=== PATIENT | female | born 1960 | race Caucasian/White ===

== ENCOUNTER 2019-12-18 11:03 | Outpatient (CLI) | payer OTHER, SELFPAY ==
[2019-12-18 11:33] LABS: Hematocrit 38.8 % (37.0-47.0); Hemoglobin 12.6 g/dL (12.0-15.0); Mean Corpuscular HGB Conc 32.5 g/dl (32-36); Mean Corpuscular Volume 92.4 fl (80-100); Mean Platelet Volume 8.6 fl (7.4-10.4); Platelet Count Result 245 k/mm3 (150-375); Red Cell Distribution Width 13.1 % (11.5-14.5); White Blood Count 6.3 K/mm3 (4.5-10.0)
[2019-12-18 11:48] LABS: Alanine Aminotransferase 9 U/L (4-35); Albumin Level 4.3 g/dL (3.5-5.1); Alkaline Phosphatase 59 U/L (38-126); Aspartate Amino Transferase 29 U/L (14-36); Bilirubin,Total 0.6 mg/dL (0.2-1.3); Blood Urea Nitrogen 11 mg/dL (7-17); CRP < 0.5 mg/dL (<1.0); Calcium 8.9 mg/dL (8.4-10.2); Carbon Dioxide 30 mmol/L (22-30); Chloride 102 mmol/L (98-107); Estimated Glomerular Filt Rate > 60; Glucose 98 mg/dL (65-105); Potassium 3.8 mmol/L (3.4-5.0); Sodium 140 mmol/L (137-145)
[2019-12-26 20:02] LABS: Calprotectin, Stool 439.5 mcg/g
== END 2019-12-18 11:04 | disposition home or self-care (01) ==
PROVIDERS: PCP Family Medicine; Visit Provider Internal Medicine Gastroenterology
DX: R10.84 Generalized abdominal pain (principal); K52.9 Noninfective gastroenteritis and colitis, unspecified
CPT/HCPCS: 36415; 80053; 83993; 85027; 86140

== ENCOUNTER 2020-04-04 09:31 | Outpatient (CLI) | payer OTHER, SELFPAY ==
[2020-04-04 10:59] LABS: CRP < 0.5 mg/dL (<1.0)
== END 2020-04-04 09:32 | disposition home or self-care (01) ==
PROVIDERS: PCP Family Medicine; Visit Provider Internal Medicine Gastroenterology
DX: R19.7 Diarrhea, unspecified (principal); R10.84 Generalized abdominal pain
CPT/HCPCS: 36415; 86140

== ENCOUNTER 2020-04-05 09:52 | Outpatient (CLI) | payer OTHER, SELFPAY | END 2020-04-05 09:53 | disposition home or self-care (01) | LOC: ANHLAB 09:53 | PROVIDERS: PCP Family Medicine; Visit Provider Family Medicine | DX: R19.7 Diarrhea, unspecified (principal) | CPT/HCPCS: 83993 ==

== ENCOUNTER 2020-09-13 15:31 | Outpatient (CLI) | payer OTHER, SELFPAY ==
[2020-09-13 16:03] LABS: Basophils Percent Auto 0.6 % (0.2-1.2); Eosinophils Absolute Auto 0.2 K/mm3 (0-0.3); Eosinophils Percent Auto 4.4 % (0-4.4); Hematocrit 39.4 % (37.0-47.0); Hemoglobin 13.2 g/dL (12.0-15.0); Immature Granulocyte Absolute 0.01 K/mm3 (0.00-0.031); Immature Granulocyte Percent A 0.2 % (0-0.5); Lymphocytes Absolute Auto 1.99 K/mm3 (0.9-3.2); Lymphocytes Percent Auto 40.1 % (18.3-44.2); Mean Corpuscular HGB Conc 33.5 g/dl (32-36); Mean Corpuscular Volume 95.4 fl (80-100); Mean Platelet Volume 8.6 fl (7.4-10.4); Monocytes Absolute Auto 0.4 K/mm3 (0.1-0.6); Monocytes Percent Auto 8.7 % (2.6-8.5); Neutrophils Absolute Auto 2.3 K/mm3 (1.3-6.7); Platelet Count Result 205 k/mm3 (150-375); Red Blood Count 4.13 M/mm3 (4.2-5.4); Red Cell Distribution Width 12.7 % (11.5-14.5)
[2020-09-13 16:28] LABS: Alanine Aminotransferase 14 U/L (4-35); Albumin Level 4.5 g/dL (3.5-5.1); Alkaline Phosphatase 64 U/L (38-126); Anion Gap 5 mmol/L (8-16); Aspartate Amino Transferase 30 U/L (14-36); Blood Urea Nitrogen 19 mg/dL (7-17); Calcium 9.2 mg/dL (8.4-10.2); Carbon Dioxide 32 mmol/L (22-30); Chloride 102 mmol/L (98-107); Estimated Glomerular Filt Rate 50; Glucose 100 mg/dL (65-105); Potassium 3.9 mmol/L (3.4-5.0); Sodium 139 mmol/L (137-145)
[2020-09-13 16:53] LABS: Free T4 Free Thyroxine 0.83 ng/mL (0.78-2.19); Vitamin D 25 Hydroxy 19.9 ng/mL
[2020-09-13 16:58] LABS: Thyroid Stimulating Hormone 0.774 uIU/mL (0.465-4.680)
[2020-09-16 09:48] LABS: Vitamin B1 10 nmol/L (8-30)
== END 2020-09-13 15:32 | disposition home or self-care (01) ==
LOC: ANHLAB 15:33
PROVIDERS: PCP Family Medicine; Visit Provider Psychiatry & Neurology Neurology
DX: R41.3 Other amnesia (principal)
CPT/HCPCS: 36415; 80053; 82306; 82607; 84425; 84439; 84443; 85025

== ENCOUNTER 2020-09-27 08:47 | Outpatient (CLI) | payer OTHER, SELFPAY ==
--- NOTE | 2020-09-28 08:59 | P.NEURO_ITS ---
Neurology EEG Report General Information Date of Study: 09/27/20 TEST eeg DIAGNOSIS memory loss CONDITION OF RECORDING Awake drowsy and sleep EEG NUMBER [id number] CLINICAL HISTORY memory loss EEG DESCRIPTION basic resting occipital frequency consists of low-voltage 11 to 13 hertz per 2nd alpha admixed with low-voltage 15 to 21 hertz per 2nd beta activity. During drowsiness low-voltage beta activity seen diffusely. Bilateral symmetrical sle ep activity seen during sleep hyperventilation not done. Photic stimulation produced normal drive. Non paroxysmal. Nonfocal. Nonlateralizing. IMPRESSION Normal EEG during wakefulness drowsiness and sleep
== END 2020-09-27 08:48 | disposition home or self-care (01) ==
PROVIDERS: PCP Family Medicine; Visit Provider Psychiatry & Neurology Neurology
DX: R41.3 Other amnesia (principal)
CPT/HCPCS: 95816

== ENCOUNTER 2020-10-16 10:58 | Outpatient (CLI) | payer OTHER, SELFPAY ==
--- NOTE | ~2020-10-16 | US_ITS ---
US thyroid INDICATION: Thyroid goiter TECHNIQUE: Real-time sonographic images of the thyroid gland were obtained. COMPARISON: No prior images for comparison FINDINGS: The right thyroid lobe measures 4 x 1.9 x 1.4 cm. The left thyroid lobe measures 4.6 x 1.6 x 1.3 cm. There is normal echotexture and echogenicity throughout the thyroid gland. There is a smal l partially cystic hypoechoic 4 mm mass of the right lobe which is wider than tall, smooth marginated with no calcifications, TR 2. Normal vascular flow is present. IMPRESSION: 1. 4 mm cystic mass right thyroid lobe, likely benign. Reviewed, dictated and finalized at location A. PLANNER
== END 2020-10-16 10:59 | disposition home or self-care (01) ==
PROVIDERS: PCP Family Medicine; Visit Provider Internal Medicine Endocrinology, Diabetes & Metabolism
DX: E07.9 Disorder of thyroid, unspecified (principal)
CPT/HCPCS: 76536

== ENCOUNTER 2020-10-19 08:04 | Outpatient (CLI) | payer OTHER, SELFPAY ==
[2020-10-19 09:13] LABS: Alanine Aminotransferase 10 U/L (4-35); Albumin Level 4.6 g/dL (3.5-5.1); Alkaline Phosphatase 55 U/L (38-126); Anion Gap 7 mmol/L (8-16); Aspartate Amino Transferase 26 U/L (14-36); Bilirubin,Total 0.8 mg/dL (0.2-1.3); Blood Urea Nitrogen 16 mg/dL (7-17); Calcium 9.7 mg/dL (8.4-10.2); Carbon Dioxide 32 mmol/L (22-30); Chloride 102 mmol/L (98-107); Estimated Glomerular Filt Rate > 60; Glucose 95 mg/dL (65-105); Sodium 141 mmol/L (137-145)
[2020-10-19 09:42] LABS: Thyroid Stimulating Hormone 0.544 uIU/mL (0.465-4.680)
[2020-10-19 10:16] LABS: Folic Acid 7.8 ng/mL (2.76->20); Iron 76 ug/dL (37-170)
[2020-10-19 10:25] LABS: Percent Iron Saturation 23 % (20-50)
[2020-10-19 10:34] LABS: Free T4 Free Thyroxine 0.83 ng/mL (0.78-2.19)
[2020-10-22 05:29] LABS: Thyroid Peroxidase Antibodies <1 IU/mL (<9)
[2020-10-23 10:12] LABS: DHEA-Sulfate 36 mcg/dL (12-133)
[2020-10-23 11:40] LABS: T3 Reverse 9 ng/dL (8-25)
[2020-10-23 12:23] LABS: Testosterone Total 14 ng/dL (2-45)
[2020-10-25 11:35] LABS: Triiodothyronine T3 Free 2.7 pg/mL (2.3-4.2)
[2020-10-26 15:42] LABS: Thyroid Stimulating Immunoglob <89 % baseline (<140)
== END 2020-10-19 08:05 | disposition home or self-care (01) ==
PROVIDERS: PCP Family Medicine; Visit Provider Internal Medicine Endocrinology, Diabetes & Metabolism
DX: R94.6 Abnormal results of thyroid function studies (principal); L65.9 Nonscarring hair loss, unspecified
CPT/HCPCS: 36415; 80053; 82607; 82627; 82728; 82746; 83540; 83550; 84402; 84403; 84439; 84443; 84445; 84481; 84482; 86376

== ENCOUNTER 2020-12-08 12:11 | Outpatient (CLI) | payer OTHER, SELFPAY ==
--- NOTE | ~2020-12-08 | XR_ITS ---
[id number]_CR DATE: 12/08/2020 12:41 INDICATION: Rib pain under right chest after shoveling snow TECHNIQUE: PA chest. 3 views of the right ribs.. COMPARISON: None FINDINGS: Normal heart size. There is aortic unfolding. No hilar or mediastinal enlargement. Lungs ar e hyperinflated but clear of infiltrate or consolidation. No pleural effusion or pulmonary vascular c ongestion or pneumothorax. Diffuse osteopenia. No displaced right rib fracture or any rib bone destruction is noted. IMPRESSION: No displaced rib fracture detected Diffuse osteopenia Bilateral hyperinflation. No active pulmonary disease Reviewed, dictated and finalized at Location A. Reviewed, dictated and finalized at location A. N MASTER
== END 2020-12-08 12:12 | disposition home or self-care (01) ==
LOC: ANHIMG 12:26
PROVIDERS: PCP Family Medicine; Visit Provider Family Medicine
DX: R07.81 Pleurodynia (principal); M85.88 Other specified disorders of bone density and structure, other site; R91.8 Other nonspecific abnormal finding of lung field
CPT/HCPCS: 71101

== ENCOUNTER 2021-01-02 08:01 | Outpatient (CLI) | payer OTHER, SELFPAY ==
--- NOTE | ~2021-01-02 | XR_ITS ---
XR hip BI 2V w AP pelvis 01/02/2021 08:22 Indication: Status post recent fall. Hip pain. Procedure: AP pelvis and 2 views each hip Comparison: No prior studies for comparison. Findings: Pelvic rings are intact. Mild osteoarthritis of the hips. Sacral foramen are symmetric. No focal soft tissue abnormality. No foreign bodies. There are surgical clips in the right lower pelvis. There are pelvic phleboliths. Mild lower lumbar spondylosis. No acute fracture or traumatic malalign ment. Impression: 1: No acute fracture. 2: Mild osteoarthritis of the hips. Reviewed, dictated and finalized at location A. Impression: 1: No acute fracture. 2: Mild osteoarthritis of the hips.
== END 2021-01-02 08:02 | disposition home or self-care (01) ==
PROVIDERS: PCP Family Medicine; Visit Provider Nurse Practitioner Family
DX: M16.0 Bilateral primary osteoarthritis of hip (principal)
CPT/HCPCS: 73521

== ENCOUNTER 2021-01-06 07:54 | Outpatient (CLI) | payer OTHER, SELFPAY ==
--- NOTE | ~2021-01-06 | DEXA_ITS ---
Bone Density Report Name: Karuna Carroll Age: 60 Sex: Female Ethnicity: White Date of : 1960 Indication: osteopenia; height loss; inflammatory bowel disease; hysterectomy; postmenopausal Referring Provider: RAMÓN, BHUMIKA Krueger Study: Bone densitometry was performed. Exam Date: January 06, 2021 Accession number: [id number] Bone Density: Region BMD T-score Z-score Classification AP Spine (L1-L4) 0.796 -2.3 -0.7 Osteopenia Femoral Neck (Left) 0.599 -2.3 -0.9 Osteopenia Total Hip (Left) 0.770 -1.4 -0.3 Osteopenia Total Hip Bilateral Avg 0.777 -1.4 -0.3 Osteopenia Femoral Neck (Right) 0.658 -1.7 -0.3 Osteopenia Total Hip (Right) 0.783 -1.3 -0.2 Osteopenia World Health Organization criteria for BMD impression classify patients as: Normal (T-score at or above -1.0), Osteopenia (T-score between -1.0 and -2.5), or Osteoporosis (T-score at or below -2.5). 10-year Fracture Risk(1): Major Osteoporotic Fracture 10% Hip Fracture 1.7% Reported Risk Factors: [place] (), Neck BMD=0.599, BMI=22.3 (1) FRAX(R) Version 3.08. Fracture probability calculated for an untreated patient. Fracture probability may be lower if the patient has received treatment. Previous Exams: Region Exam Age BMD T-score BMD Change BMD Change Date g/cm2 vs Baseline vs Previous AP Spine(L1-L4) 01/06/2021 60 0.796 -2.3 -0.009(-1.1%) -0.009(-1.1%) 09/20/2017 57 0.805 -2.2 Total Hip(Left) 01/06/2021 60 0.770 -1.4 -0.045(-5.5%)* -0.045(-5.5%)* 09/20/2017 57 0.814 -1.0 Total Hip(Right) 01/06/2021 60 0.783 -1.3 -0.036(-4.4%)* -0.036(-4.4%)* 09/20/2017 57 0.819 -1.0 *Denotes significance at 95% confidence level, LSC for AP Spine = 0.022 g/cm2, LSC for Total Hip = 0.027 g/cm2 Clinical Information Provided by Patient: Has used the following medications: Vitamin D, Calcium Has the following medical conditions: nflammatory bowel diseases, Hysterectomy, COLITIS, Patient maximum height was 63 Menopause Age: 50 Drinks caffeinated beverages Onset of menses at age 12 Number of children 2 Impression: The patient has low bone mass, based on the Total Spine T-score. The patient has an estimated ten-year risk of hip fracture of 1.7% and an estimated ten-year risk of major fracture of 10%, based on the WHO FRAX algorithm. The BMD for the Total Hip(Left) decreased, changing by -5.5% since the last DXA exam. The BMD for the Total Hip(Right) decreased, changing by -4.
== END 2021-01-06 07:55 | disposition home or self-care (01) ==
LOC: ANHIMG 07:56
PROVIDERS: PCP Family Medicine; Visit Provider Family Medicine
DX: M85.80 Other specified disorders of bone density and structure, unspecified site (principal)
CPT/HCPCS: 77080

== ENCOUNTER 2021-03-22 12:46 | Outpatient (CLI) | payer OTHER, SELFPAY ==
--- NOTE | ~2021-03-22 | XR_ITS ---
EXAMINATION: XR chest 2V 03/22/2021 12:58 INDICATION: Productive cough PROCEDURE: 2 view chest COMPARISON: 03/08/2027 FINDINGS: The lungs are clear. The lungs are hyperinflated which is consistent with, but not diagnost ic of chronic obstructive pulmonary disease. The cardiomediastinal silhouette is within normal limits . There are no pleural effusions. There is no pneumothorax suspected. IMPRESSION: 1: NO ACUTE CARDIOPULMONARY DISEASE. Reviewed, dictated and finalized at location B.
== END 2021-03-22 12:47 | disposition home or self-care (01) ==
LOC: ANHIMG 12:48
PROVIDERS: PCP Family Medicine; Visit Provider Nurse Practitioner Family
DX: R05 Cough (principal)
CPT/HCPCS: 71046

== ENCOUNTER 2021-05-02 10:07 | Outpatient (CLI) | payer OTHER, SELFPAY ==
[2021-05-02 10:49] LABS: Alanine Aminotransferase 20 U/L (4-35); Albumin Level 4.7 g/dL (3.5-5.1); Alkaline Phosphatase 69 U/L (38-126); Anion Gap 9 mmol/L (8-16); Aspartate Amino Transferase 31 U/L (14-36); Bilirubin,Total 0.8 mg/dL (0.2-1.3); Blood Urea Nitrogen 16 mg/dL (7-17); Calcium 9.8 mg/dL (8.4-10.2); Carbon Dioxide 30 mmol/L (22-30); Chloride 99 mmol/L (98-107); Estimated Glomerular Filt Rate > 60; Glucose 102 mg/dL (65-110); Potassium 3.8 mmol/L (3.4-5.0); Sodium 138 mmol/L (137-145)
[2021-05-02 11:00] LABS: Free T4 Free Thyroxine 0.77 ng/mL (0.78-2.19)
[2021-05-02 11:19] LABS: Thyroid Stimulating Hormone 0.464 uIU/mL (0.465-4.680)
[2021-05-03 16:51] LABS: Folic Acid > 20.0 ng/mL (2.76->20); Vitamin B12 > 1000.0 pg/mL (239-931)
[2021-05-06 05:01] LABS: Thyroid Peroxidase Antibodies <1 IU/mL (<9)
[2021-05-06 06:47] LABS: Triiodothyronine T3 Free 2.5 pg/mL (2.3-4.2)
== END 2021-05-02 10:08 | disposition home or self-care (01) ==
PROVIDERS: PCP Family Medicine; Visit Provider Internal Medicine Endocrinology, Diabetes & Metabolism
DX: E06.3 Autoimmune thyroiditis (principal); E53.8 Deficiency of other specified B group vitamins
CPT/HCPCS: 36415; 80053; 82607; 82746; 84439; 84443; 84481; 86376

== ENCOUNTER 2021-05-08 07:53 | Outpatient (CLI) | payer OTHER, SELFPAY ==
--- NOTE | ~2021-05-08 | MR_ITS ---
EXAMINATION: MR abdomen wo/w con DATE: 05/08/2021 09:01 INDICATION: Pancreatic cyst TECHNIQUE: Magnetic resonance imaging (MRI) of the abdomen was performed without and with 11 mL Multi yissel intravenous contrast. Sequences included coronal T2-weighted SS-FSE, coronal and axial FS 2D-F IESTA, axial STIR FSE, axial T2-weighted SS-FSE, axial T2-weighted FS SS-FSE, axial diffusion-weighte d SE, axial dual-echo T1-weighted FSPGR, and axial and coronal T1-weighted LAVA. Postcontrast axial T 1-weighted LAVA images were obtained in a time course. Postcontrast coronal T1-weighted LAVA images w ere obtained. COMPARISON: CT abdomen dated 03/31/2007 FINDINGS: Heart size is normal. No pericardial or pleural effusion. There are couple T2 hyperintense nonenhanci ng hepatic cysts, the largest in the left hepatic lobe measuring 2.1 cm in maximal diameter. There is a gradient of dependently layering sludge in the normal-appearing gallbladder. Unchanged mild dilati on of the common bile duct which measures up to 8 mm but smoothly tapers more distally with no eviden t obstructing stone or mass. No intrahepatic biliary ductal dilation. There are couple T2 hyperintens e nonenhancing right renal cysts, the larger measuring 1.3 cm in maximal diameter. Spleen is normal. Pancreas appears normal with homogeneous parenchymal enhancement and normal caliber main pancreatic d uct. No cystic or abnormally enhancing pancreatic lesions identified. Visualized bowels are unremarka ble. No pathologically enlarged abdominal lymphadenopathy. Normal bone marrow signal throughout. Nati ular fissure and left paracentral disc protrusion resulting in mild central canal stenosis at T11-T12 . IMPRESSION: 1. Normal pancreas. No abnormal pancreatic lesions identified in either the current study or prior CT . Recommend correlation with any intervening prior outside imaging. Reviewed, dictated and finalized at location A. IMPRESSION: 1. Normal pancreas. No abnormal pancreatic lesions identified in either the cur rent study or prior CT. Recommend correlation with any intervening prior outsid e imaging.
== END 2021-05-08 07:54 | disposition home or self-care (01) ==
LOC: ANHIMG 08:01
PROVIDERS: PCP Family Medicine
DX: K86.2 Cyst of pancreas (principal)
CPT/HCPCS: 74183; A9577

== ENCOUNTER 2022-01-24 17:23 | Outpatient (CLI) | payer OTHER, SELFPAY ==
--- NOTE | ~2022-01-24 | XR_ITS ---
EXAM: XR abdomen/kub 1V HISTORY: LOWER BACK PAIN, CONCERNED FOR KIDNEY STONES COMPARISON: 03/31/2007 FINDINGS: Clear lung bases. Normal bowel gas pattern. No organomegaly. 3 mm calcific density over th e left upper pole. Punctate hyperdensities over the left lower pole. Irregular calcific density proje cts over the right UPJ. Multiple pelvic phleboliths/calcifications. Pelvic surgical clips. Degenerati ve changes in the lower lumbar spine. IMPRESSION: Multiple abdominal and pelvic calcific densities that could represent nephrolithiasis or stones withi n the distal collecting system in the appropriate conical context. CT would be helpful for further ev aluation/more definitive determination. Reviewed, dictated and finalized at location K. IMPRESSION: Multiple abdominal and pelvic calcific densities that could represent nephrolit hiasis or stones within the distal collecting system in the appropriate conical context. CT would be helpful for further evaluation/more definitive determinat ion.
== END 2022-01-24 17:24 | disposition home or self-care (01) ==
PROVIDERS: PCP Family Medicine; Visit Provider Nurse Practitioner Family
DX: R10.9 Unspecified abdominal pain (principal); M47.816 Spondylosis without myelopathy or radiculopathy, lumbar region
CPT/HCPCS: 74018

== ENCOUNTER 2022-03-13 09:09 | Outpatient (CLI) | payer OTHER, SELFPAY ==
--- NOTE | ~2022-03-13 | XR_ITS ---
XR wrist LT min 3V 03/13/2022 11:41 Indication: Left wrist pain Procedure: 4 views left wrist Comparison: 04/14/2006 Findings: No fracture, subluxation or dislocation. No significant soft tissue abnormality. No foreign body. Impression: 1: No acute fracture. Reviewed, dictated and finalized at location A. Impression: 1: No acute fracture.
== END 2022-03-13 09:10 | disposition home or self-care (01) ==
PROVIDERS: PCP Family Medicine; Referring Provider Nurse Practitioner Family; Visit Provider Internal Medicine Endocrinology, Diabetes & Metabolism
DX: Z78.0 Asymptomatic menopausal state (principal); M25.532 Pain in left wrist
CPT/HCPCS: 73110

== ENCOUNTER 2022-03-27 11:10 | Outpatient (CLI) | payer OTHER, SELFPAY ==
--- NOTE | ~2022-03-27 | DEXA_ITS ---
Bone Density Report Name: KENYETTA WOODSON Age: 61 Sex: Female Ethnicity: White Date of : 1960 Indication: osteopenia; prior fracture; hysterectomy; postmenopausal Referring Provider: PADDY, HARRIS Davidson Study: Bone densitometry was performed. Exam Date: March 27, 2022 Accession number: [id number] Bone Density: Region BMD T-score Z-score Classification AP Spine(L1-L4) 0.821 -2.1 -0.4 Osteopenia Femoral Neck (Left) 0.597 -2.3 -0.8 Osteopenia Total Hip (Left) 0.765 -1.5 -0.3 Osteopenia Femoral Neck (Right) 0.651 -1.8 -0.3 Osteopenia Total Hip (Right) 0.777 -1.3 -0.2 Osteopenia Total Hip Mean 0.771 -1.4 -0.3 Osteopenia World Health Organization criteria for BMD impression classify patients as: Normal (T-score at or above -1.0), Osteopenia (T-score between -1.0 and -2.5), or Osteoporosis (T-score at or below -2.5). 10-year Fracture Risk(1): Major Osteoporotic Fracture 19% Hip Fracture 3.2% Reported Risk Factors: [place] (), Neck BMD=0.597, BMI=24.3, previous fracture (1) FRAX(R) Version 3.08. Fracture probability calculated for an untreated patient. Fracture probability may be lower if the patient has received treatment. Previous Exams: Region Exam Age BMD T-score BMD Change BMD Change Date g/cm2 vs Baseline vs Previous AP Spine (L1-L4) 03/27/2022 61 0.821 -2.1 0.016 (2.0%) 0.025 (3.1%)* 01/06/2021 60 0.796 -2.3 -0.009 (-1.1%) -0.009 (-1.1%) 09/20/2017 57 0.805 -2.2 Total Hip(Left) 03/27/2022 61 0.765 -1.5 -0.050 (-6.1%) -0.005 (-0.6%) 01/06/2021 60 0.770 -1.4 -0.045 (-5.5%) -0.045 (-5.5%) 09/20/2017 57 0.814 -1.0 Total Hip(Right) 03/27/2022 61 0.777 -1.3 -0.042 (-5.1%) -0.006 (-0.7%) 01/06/2021 60 0.783 -1.3 -0.036 (-4.4%) -0.036 (-4.4%) 09/20/2017 57 0.819 -1.0 *Denotes significance at 95% confidence level, LSC for AP Spine = 0.022 g/cm2, LSC for Total Hip = 0.027 g/cm2 Clinical Information Provided by Patient: Has had a low trauma fracture Has the following medical conditions: Hysterectomy Patient maximum height was 63 Menopause Age: 50 Drinks caffeinated beverages Onset of menses at age 10 Number of children 2 Impression: The patient has low bone mass, based on the Left Femoral Neck T-score. The patient has an estimated ten-year risk of hip fracture of 3.2% and an estimated ten-year risk of major fracture of 19%, based on the WHO FRAX algorithm. The pat
[2022-03-27 13:04] LABS: Alanine Aminotransferase 15 U/L (6-35); Albumin Level 4.9 g/dL (3.5-5.1); Alkaline Phosphatase 75 U/L (38-126); Anion Gap 5 mmol/L (8-16); Aspartate Amino Transferase 24 U/L (14-36); Bilirubin,Total 0.5 mg/dL (0.2-1.3); Blood Urea Nitrogen 9 mg/dL (7-17); Calcium 9.1 mg/dL (8.4-10.2); Carbon Dioxide 28 mmol/L (22-30); Chloride 105 mmol/L (98-107); Estimated Glomerular Filt Rate > 60; Glucose 98 mg/dL (65-110); Potassium 4.2 mmol/L (3.4-5.0); Sodium 138 mmol/L (137-145)
[2022-03-27 13:19] LABS: Free T4 Free Thyroxine 0.87 ng/mL (0.78-2.19)
[2022-03-27 13:32] LABS: Thyroid Stimulating Hormone 0.328 uIU/mL (0.465-4.680)
[2022-03-27 14:07] LABS: Folic Acid 14.5 ng/mL (2.76->20)
[2022-03-30 05:33] LABS: Triiodothyronine T3 Free 2.6 pg/mL (2.3-4.2)
[2022-03-30 07:00] LABS: Thyroid Peroxidase Antibodies <1 IU/mL (<9)
== END 2022-03-27 11:11 | disposition home or self-care (01) ==
PROVIDERS: PCP Family Medicine; Visit Provider Internal Medicine Endocrinology, Diabetes & Metabolism
DX: Z78.0 Asymptomatic menopausal state (principal); E06.3 Autoimmune thyroiditis; M85.89 Other specified disorders of bone density and structure, multiple sites
CPT/HCPCS: 36415; 77080; 80053; 82607; 82746; 84439; 84443; 84481; 86376

== ENCOUNTER 2022-08-22 00:59 | Day surgery (SDC) | payer OTHER, SELFPAY ==
[2022-08-15 14:46] VITALS: BMI 24.2
--- NOTE | 2022-08-21 17:00 | PM.HPGS ---
History of Present Illness History of Present Illness Consent: Risks, benefits, and alternatives have been discussed and questions answered. Patient agrees to proceed with procedure. Chief complaint: neoplasm screening Narrative: Karuna Carroll is a 61 year old female who was referred for change in bowel habits. She has had severe diarrhea. About 5 years ago she had been found to have microscopic colitis on biopsy when she also was being investigated for diarrhea. She had taking budesonide for while with good results. Review of Systems Review of Systems: All systems reviewed & are unremarkable except as noted in HPI and below PMFSH Past Medical History Medical History Trigger finger of all digits of left hand Family History Family History Mother Hypertension Family history of coronary artery disease Sibling Hypertension Family history of malignant neoplasm Family history of malignant neoplasm of cervix Family history of coronary artery disease Family history of malignant neoplasm of breast in first degree relative Father Malignant neoplasm of prostate Social History Social History Smoking status: Never smoker Alcohol intake: current Alcohol use details: occasionally Substance use: never Substance use type: does not use Living arrangements: with family Spiritual care concerns: No Meds Home Medications and Allergies Home Medications Medication Instructions Recorded Confirmed Type hydrochlorothiazide 12.5 mg capsule 12.5 mg PO DAILY 03/20/21 08/15/22 History levothyroxine 25 mcg tablet 25 mcg PO DAILY 03/20/21 08/15/22 History (Euthyrox) loperamide 2 mg tablet (Imodium 2 mg PO Q6H PRN Diarrhea 03/20/21 08/15/22 History A-D) losartan 100 mg tablet 100 mg PO DAILY 03/20/21 08/15/22 History multivitamin (Daily Multi-Vitamin 1 tablet PO DAILY 03/20/21 08/15/22 History tablet) omeprazole 20 mg capsule,delayed 20 mg PO DAILY 03/20/21 08/15/22 History release donepezil 5 mg tablet See Rx Instructions .Route 08/01/22 08/15/22 Rx .COMPLEX #30 tabs Allergies Allergy/AdvReac Type Severity Reaction Status Date / Time azithromycin Allergy Unknown unknown Verified 08/22/22 11:55 codeine Allergy Unknown Unknown Verified 08/22/22 11:55 Penicillins Allergy Unknown Unknown Verified 08/22/22 11:55 Sulfa (Sulfonamide Allergy Unknown Unknown Verified 08/22/22 11:55 Antibiotics) tramadol Allergy Unknown Tinnitus Verified 08/22/22 11:55 Exam Const: General: alert Orientation/consciousness: patient oriented x3 Resp: Auscultation: clear to auscultation bilaterally Cardio: Rhythm: regular rhythm GI: GI Palp: Yes Soft to palpation and No Tenderness to palpation present (GI) Neuro: General: patient oriented x3 Assessment and Plan Assessment and plan (1) Chronic diarrhea: Code(s): K52.9 - Noninfective gastroenteritis and colitis, unspecified Status: Acute Assessment and Plan: Colonoscopy with possible biopsy or polypectomy or cautery or injection of substances.
[2022-08-22 11:56] VITALS: BP 171/106; PULSE 96; RESP 18; TEMP 36.7; O2SAT 99
[2022-08-22] MEDS: LACTATED RINGERS 1,000 ML 150 ML IV CONT (12:03)
--- NOTE | 2022-08-22 12:43 | WPDANESEPPF ---
Anes - Initial Pre Proc Eval Procedure: Operation Date: 08/22/22 13:30 Proposed Procedures p Screening Colonoscopy - Manohar Delgadillo MD Date/Time: 08/22/22 12:43 Surgeon: Manohar Delgadillo MD Pre Op Diagnosis: neoplasm screening Patient Data Age: 61 Gender: F Height: 1.57 m Weight: 60.4 kg Last Vital Signs Temp 98.1 F 08/22/22 11:56 Pulse 96 08/22/22 11:56 Resp 18 08/22/22 11:56 BP 171/106 H 08/22/22 11:56 Pulse Ox 99 08/22/22 11:56 O2 Del Method Room Air 08/22/22 11:56 Allergies Allergy/AdvReac Type Severity Reaction Status Date / Time azithromycin Allergy Unknown unknown Verified 08/22/22 11:55 codeine Allergy Unknown Unknown Verified 08/22/22 11:55 Penicillins Allergy Unknown Unknown Verified 08/22/22 11:55 Sulfa (Sulfonamide Allergy Unknown Unknown Verified 08/22/22 11:55 Antibiotics) tramadol Allergy Unknown Tinnitus Verified 08/22/22 11:55 Home Medications Medication Instructions Recorded Confirmed Type hydrochlorothiazide 12.5 mg capsule 12.5 mg PO DAILY 03/20/21 08/15/22 History levothyroxine 25 mcg tablet 25 mcg PO DAILY 03/20/21 08/15/22 History (Euthyrox) loperamide 2 mg tablet (Imodium 2 mg PO Q6H PRN Diarrhea 03/20/21 08/15/22 History A-D) losartan 100 mg tablet 100 mg PO DAILY 03/20/21 08/15/22 History multivitamin (Daily Multi-Vitamin 1 tablet PO DAILY 03/20/21 08/15/22 History tablet) omeprazole 20 mg capsule,delayed 20 mg PO DAILY 03/20/21 08/15/22 History release donepezil 5 mg tablet See Rx Instructions .Route 08/01/22 08/15/22 Rx .COMPLEX #30 tabs Patient hx anesthesia problems: none Family hx anesthesia problems: none Results Review: All pre-operative results and documents have been reviewed as part of the pre-operative evaluation. [facility] Past Medical History Medical History Trigger finger of all digits of left hand Family History Family History Mother Hypertension Family history of coronary artery disease Sibling Hypertension Family history of malignant neoplasm Family history of malignant neoplasm of cervix Family history of coronary artery disease Family history of malignant neoplasm of breast in first degree relative Father Malignant neoplasm of prostate Social History Social History Smoking status: Never smoker Alcohol intake: current Alcohol use details: occasionally Substance use: never Substance use type: does not use Living arrangements: with family Spiritual care concerns: No Anes - Eval Final PreProcedure Day of Procedure 08/22/22 12:43 Patient weight: normal Heart: regular rate and rhythm Lungs: clear to auscultation Airway: Mallampati scale class II Neurological: alert and oriented Last oral intake: >/= 8 hours ASA classification: III Emergent: no Anesthetic plan: proceed Anesthesia type and monitoring: general GIVS and standard monitoring Results Review: All pre-operative results and documents have been reviewed as part of the pre-operative evaluation. Informed Consent: The patient's anesthetic plan and its attendant risks and benefits were discussed with the patient/family/POA. Questions were solicited and answers provided to the satisfaction of the patient/family/POA.
[2022-08-22 13:17] VITALS: BP 126/68; PULSE 79; RESP 20; O2SAT 99
[2022-08-22 13:27] VITALS: BP 126/83; PULSE 69; RESP 20; O2SAT 99
[2022-08-22 13:37] VITALS: BP 147/97; PULSE 67; RESP 17; O2SAT 99
== END 2022-08-22 13:45 | disposition home or self-care (01) ==
PROVIDERS: PCP Family Medicine; Visit Provider Internal Medicine Gastroenterology
PROC: 0DJD8ZZ Inspection of Lower Intestinal Tract, Via Natural or Artificial Opening Endoscopic (ICD-10-PCS; CPT 45378; principal; 2022-08-22 13:30)
DX: R19.7 Diarrhea, unspecified (principal)
CPT/HCPCS: 45380; 88305; J2001; J2704; J7120

== ENCOUNTER 2022-11-27 06:55 | Outpatient (CLI) | payer OTHER, SELFPAY ==
--- NOTE | ~2022-11-27 | MR_ITS ---
EXAMINATION: MR brain/brain stem wo con DATE: 11/27/2022 07:30 INDICATION: Memory loss. TECHNIQUE: Magnetic resonance imaging (MRI) of the brain and brainstem was performed without intraven ous contrast. COMPARISON: Brain MRI 07/15/2018 FINDINGS: There are scattered areas of nonspecific increased T2-weighted signal intensity in the cere bral white matter. There is no intracranial hemorrhage, acute infarction, or abnormal intracranial ma ss lesion. The ventricles are normal in size. There is mild mucosal thickening in the paranasal sinus es. The mastoid air cells are normal. The orbits are normal. IMPRESSION: 1. Moderate nonspecific cerebral white matter disease, which likely represents chronic small vessel i schemic disease, worsened from 07/15/2018. Reviewed, dictated and finalized at location A. BEVERAGE SUPERVISOR IMPRESSION: 1. Moderate nonspecific cerebral white matter disease, which likely represents chronic small vessel ischemic disease, worsened from 07/15/2018.
== END 2022-11-27 06:56 | disposition home or self-care (01) ==
LOC: ANHIMG 06:56
PROVIDERS: PCP Family Medicine; Visit Provider Psychiatry & Neurology Neurology
DX: R41.3 Other amnesia (principal); R93.0 Abnormal findings on diagnostic imaging of skull and head, not elsewhere classified
CPT/HCPCS: 70551

== ENCOUNTER 2023-08-28 08:58 | Outpatient (CLI) | payer MEDICARE, MEDICAID, SELFPAY ==
--- NOTE | 2023-09-24 19:26 | WPDHOMESLEEP ---
Sleep Study - Home Unattended Date of Study: 08/28/23 Ordering Provider: Cecelia Tripathi MD Interpreting Provider: Kathie Flores MD Home Sleep Study Type: Watch PAT Height: 1.57 m Weight: 61.235 kg Body Mass Index: 24.7 Neck Circumference (inches): 13 [place]: 7 Reason for Sleep Study Snoring, excessive daytime sleepiness Sleep History Karuna Carroll is a 63-year-old woman with excessive daytime sleepiness. She never awakens from sleep short of breath. She never wakes at night with heartburn, belching or coughing.??She never snores, never snores loudly enough that others complain. She rarely has trouble sleeping when she has a cold. She never wakes up gasping for breath during the night. She never has breathing problems at night. She rarely sweats excessively at night. She never notices her heart pounding or beating irregularly during the night. She rarely falls asleep during the day. She never falls asleep involuntarily, never falls asleep while driving. She never experiences loss of muscle tone with strong emotion. She never feels paralyzed on waking or falling asleep. She rarely experiences vivid dreams upon waking or falling asleep. She never feels afraid of going to sleep. She never has nightmares. She occasionally recalls her dreams. She occasionally has thoughts racing through her mind. She rarely feels sad or depressed. She rarely feels anxiety. She rarely notices parts of her body jerk. She never kicks during the night. She never feels crawling or aching feelings in her legs. She rarely feels leg pain at night. She never has morning jaw pain, and never grinds her teeth at night. She rarely feels bothered by pain during the day, is rarely awakened by pain during the night. She rarely wakes up feeling stiff in the morning, rarely wakes feeling sore or achy in the morning. She occasionally awakens with pain in her neck, spine, or joints. She has fatigue, palpitations and poor appetite. Normal bedtime is about 10:00 p.m., taking a variable amount of time to fall asleep. She wakes up maybe once at night for trip to the bathroom, returns to sleep pretty easily. She may rollover and kick off the blankets during the night. She estimates getting between 6 and 7 hours of sleep at night. Her wake up time is variable. She takes naps in the afternoon or evening. A short nap lasting 10-15 minutes may be refreshing. Habits:??Tobacco: Never smoked Caffeine: 1 serving per day. Alcohol: 2 servings per day around 5:00 p.m. Recreational substances: none [facility] Past Medical History Medical History (Updated 09/24/23 @ 19:45 by Kathie Flores MD) High blood pressure Hypothyroidism Trigger finger of all digits of left hand Surgical History Surgical History H/O hysterectomy with unilateral oophorectomy Family History Family History Mother Hypertension Family history of coronary artery disease Sibling Hypertension Family history of malignant neoplasm Family history of malignant neoplasm of cervix Family history of coronary artery disease Family history of malignant neoplasm of breast in first degree relative Father Malignant neoplasm of prostate Social History Social History (Updated 06/10/23 @ 10:27 by Janet Turner MA) Smoking status: Never smoker Alcohol intake: current Alcohol use details: occasionally Substance use: never Substance use type: does not use Lack of Transportation: No Lack of Food: Never True Current Housing: I Have Housing Concerned About Future Housing: No Difficulty Paying Gas/Electric Bills: No Difficulty Paying for Meds: No Currently Unemployed: No Education: High School Diploma/GED Difficulty w/ Childcare or Family Care: No Living arrangements: with family Occupation/Education: retired Gender identity (if verbalized by the patient): Fe
[2023-09-24 19:27] VITALS: BMI 24.7
== END 2023-09-20 10:13 | disposition home or self-care (01) ==
LOC: ANHCSM 08:59
PROVIDERS: PCP Family Medicine; Visit Provider Family Medicine
DX: G47.30 Sleep apnea, unspecified (principal); G47.19 Other hypersomnia
CPT/HCPCS: 95800

== ENCOUNTER 2023-12-06 11:11 | Emergency (ER) | payer MEDICARE, SELFPAY ==
[2023-12-06] VITALS (13 sets, daily range): BP systolic 138–162; BP diastolic 89–100; PULSE 79–96; RESP 14–27; TEMP 36.5; O2SAT 94–100
--- NOTE | ~2023-12-06 | XR_ITS ---
EXAMINATION: XR chest 2V DATE: 12/06/2023 17:33 INDICATION: Low rib pain. Lightheadedness. TECHNIQUE: Frontal and lateral views of the chest were obtained. COMPARISON: Chest 2 views 03/22/2021 FINDINGS: There is mild atelectasis in the lower lung zones. No pleural effusion or pneumothorax. The heart size is normal. IMPRESSION: 1. Mild atelectasis in the lower lung zones. Reviewed, dictated and finalized at location E. BEADER
--- NOTE | ~2023-12-06 | CT_ITS ---
EXAMINATION: CTA brain carotid DATE: 12/06/2023 18:50 INDICATION: Vertigo. Head injury. TECHNIQUE: Computed tomographic angiography (CTA) of the head was performed without and with 100 mL O mnipaque-350 intravenous contrast. CTA of the neck was performed with intravenous contrast. Automated exposure control and iterative reconstruction technique were employed. The dose-length product was 1 572.89 mGy-cm. Maximum intensity projection and volume rendered 3D-reconstructions were created by franko technologist on a separate workstation. COMPARISON: Brain MRI 11/27/2022 FINDINGS: HEAD CTA: There are scattered areas of low attenuation in the cerebral white matter. There is no intr acranial hemorrhage, acute infarction, or abnormal intracranial mass lesion. The ventricles are curly l in size. Right vertebral artery is dominant. There is no significant stenosis of basilar artery or the posterior cerebral arteries. There is no significant stenosis of the intracranial internal caroti d arteries or anterior or middle cerebral arteries. Anterior communicating artery is normal. The post erior to indicating arteries are normal. There is no aneurysm. NECK CTA: There are no pathologically enlarged lymph nodes. There is no significant stenosis of the v ertebral arteries. There is minimal plaque in the proximal internal carotid arteries. There is 0% dante nosis of the proximal right internal carotid artery relative to normal distal artery lumen diameter ( NASCET criteria). There is 0% stenosis of the proximal left internal carotid artery relative to curly l distal artery lumen diameter. There is severe cervical spondylosis. IMPRESSION: 1. Moderate nonspecific cerebral white matter disease, which likely represents chronic small vessel i schemic disease. 2. No aneurysm or significant intracranial arterial stenosis. 3. 0% stenosis of the proximal right internal carotid arteries relative to normal distal artery lumen diameters (NASCET criteria). Reviewed, dictated and finalized at location E. CALIBRATOR IMPRESSION: 1. Moderate nonspecific cerebral white matter disease, which likely represents chronic small vessel ischemic disease. 2. No aneurysm or significant intracranial arterial stenosis. 3. 0% stenosis of the proximal right internal carotid arteries relative to norm al distal artery lumen diameters (NASCET criteria).
--- NOTE | 2023-12-06 17:08 | ECG_ITS ---
Measurements Intervals [place] Rate: 76 P: 45 NC: 177 QRS: -10 QRSD: 89 T: 17 QT: 396 QTc: 448 Interpretive Statements SINUS RHYTHM NONSPECIFIC T-WAVE ABNORMALITY BORDERLINE ECG COMPARED TO ECG 03/24/2019 09:00:28 SINUS RHYTHM NOW PRESENT Electronically Signed On 12-07-2023 14:36:52 SEARCH ENGINE OPTIMIZATION CONSULTANT by Leif Cid M.D.
--- NOTE | 2023-12-06 17:14 | ED.DIZZY ---
HPI - Dizziness General Chief Complaint: Dizziness Stated Complaint: DIZZINESS, ABD PAIN X2WKS Time Seen by Provider: 12/06/23 16:36 History of Present Illness HPI Narrative: Patient is a 63-year-old female with a history of hypertension, dementia, hypothyroidism, colitis presenting with dizziness. Patient states that for the last 4-5 months she has had intermittent dizziness that she describes as a mixture of lightheadedness and room spinning. States that she really notices that whenever she stands up from sitting. States that if she sits back down it does improve. States that she had a fall about 2 weeks ago because of the dizziness and she struck the right side of her face. States that she sustained a black eye which has been healing. She also complains of right-sided lower rib pain after the fall. She saw her PCP several weeks ago who obtained outpatient blood work and x-rays but she has not received any results. The patient and her son called her PCP today who advised that she come into the ER for evaluation. She denies chest pain, shortness of breath, leg swelling. States that she sometimes does have intermittent palpitations that do not correspond with her dizziness. She denies numbness or weakness, speech changes, or vision changes though she states that she recently got new bifocal glasses. No fevers, cough, nausea or vomiting, dysuria. States that her urine has been darker than normal as well as stronger smelling. Related Data Home Medications Medication Instructions Recorded Confirmed hydrochlorothiazide 12.5 mg capsule 12.5 mg PO DAILY 03/20/21 06/10/23 levothyroxine 25 mcg tablet 25 mcg PO DAILY 03/20/21 06/10/23 (Euthyrox) loperamide 2 mg tablet (Imodium 2 mg PO Q6H PRN Diarrhea 03/20/21 06/10/23 A-D) losartan 100 mg tablet 100 mg PO DAILY 03/20/21 06/10/23 multivitamin (Daily Multi-Vitamin 1 tablet PO DAILY 03/20/21 06/10/23 tablet) cholecalciferol (vitamin D3) 25 25 mcg PO WEEKLY 10/02/22 06/10/23 mcg (1,000 unit) capsule diazepam 5 mg tablet 5 mg PO QHS PRN 06/10/23 06/10/23 valacyclovir 1 gram tablet 1,000 mg PO DAILY 06/10/23 06/10/23 Allergies Allergy/AdvReac Type Severity Reaction Status Date / Time azithromycin Allergy Unknown unknown Verified 12/06/23 11:12 codeine Allergy Unknown Unknown Verified 12/06/23 11:12 Penicillins Allergy Unknown Unknown Verified 12/06/23 11:12 Sulfa (Sulfonamide Allergy Unknown Unknown Verified 12/06/23 11:12 Antibiotics) tramadol Allergy Unknown Tinnitus Verified 12/06/23 11:12 Review of Systems Review of Systems: All systems reviewed & are unremarkable except as noted in HPI and below PMFSH Past Medical History Medical History High blood pressure Hypothyroidism Trigger finger of all digits of left hand Surgical History Surgical History H/O hysterectomy with unilateral oophorectomy Family History Family History Mother Hypertension Family history of coronary artery disease Sibling Hypertension Family history of malignant neoplasm Family history of malignant neoplasm of cervix Family history of coronary artery disease Family history of malignant neoplasm of breast in first degree relative Father Malignant neoplasm of prostate Social History Social History Smoking status: Never smoker Alcohol intake: current Alcohol use details: occasionally Substance use: never Substance use type: does not use Lack of Transportation: No Lack of Food: Never True Current Housing: I Have Housing Concerned About Future Housing: No Difficulty Paying Gas/Electric Bills: No Difficulty Paying for Meds: No Currently Unemployed: No Education: High School Diploma/GED Difficulty w/ Childcare or Family Care
[2023-12-06] MEDS: SODIUM CHLORIDE 0.9% IV 1,000 ML 999 ML IV CONT (17:43)
[2023-12-06] MEDS: MECLIZINE HCL 25 MG TABLET PO (17:50)
[2023-12-06 17:59] LABS: Basophils Percent Auto 0.8 % (0.2-1.2); Eosinophils Absolute Auto 0.2 K/mm3 (0-0.3); Eosinophils Percent Auto 3.4 % (0-4.4); Hematocrit 41.6 % (37.0-47.0); Hemoglobin 13.7 g/dL (12.0-15.0); Immature Granulocyte Absolute 0.01 K/mm3 (0.00-0.031); Immature Granulocyte Percent A 0.2 % (0-0.5); Lymphocytes Absolute Auto 1.83 K/mm3 (0.9-3.2); Lymphocytes Percent Auto 34.5 % (18.3-44.2); Mean Corpuscular HGB Conc 32.9 g/dl (32-36); Mean Corpuscular Hemoglobin 32.2 pg (26-34); Mean Corpuscular Volume 97.7 fl (80-100); Mean Platelet Volume 8.9 fl (7.4-10.4); Monocytes Absolute Auto 0.5 K/mm3 (0.1-0.6); Monocytes Percent Auto 9.1 % (2.6-8.5); Neutrophils Absolute Auto 2.8 K/mm3 (1.3-6.7); Platelet Count Result 208 k/mm3 (150-375); Red Blood Count 4.26 M/mm3 (4.2-5.4); Red Cell Distribution Width 12.5 % (11.5-14.5); White Blood Count 5.3 K/mm3 (4.5-10.0)
[2023-12-06 18:11] LABS: Prothrombin Time 13.4 Seconds (11.1-14.7)
[2023-12-06 18:12] LABS: Partial Thromboplastin Time 28.8 SECONDS (22.3-36.8)
[2023-12-06 18:31] LABS: Alanine Aminotransferase 27 U/L (6-35); Albumin Level 4.7 g/dL (3.5-5.1); Alkaline Phosphatase 84 U/L (38-126); Anion Gap 9 mmol/L (8-16); Aspartate Amino Transferase 35 U/L (14-36); Bilirubin,Total 1.2 mg/dL (0.2-1.3); Blood Urea Nitrogen 18 mg/dL (7-17); Calcium 9.7 mg/dL (8.4-10.2); Carbon Dioxide 28 mmol/L (22-30); Chloride 99 mmol/L (98-107); Estimated CRCL calculation 48 ml/min; Estimated Glomerular Filt Rate > 60; Glucose 98 mg/dL (65-110); Lipase 87 U/L (23-300); Potassium 3.9 mmol/L (3.4-5.0); Sodium 136 mmol/L (137-145)
[2023-12-06 18:43] LABS: Troponin I < 0.012 ng/mL (0.000-0.034)
--- NOTE | 2023-12-06 19:00 | PC.NURSE ---
Bedside report by Margie VIRGEN to Britney VIRGEN. Pt a+o x 4, no distress noted.
[2023-12-06] MEDS: KETOROLAC 30 MG/ML VIAL (*BKC) IV PUSH (19:41)
[2023-12-06 19:52] LABS: Appearance Urine Clear (Clear); Bacteria Urine None Seen /hpf; Bilirubin Urine Negative (Negative); Blood Urine Negative (Negative); Color Urine Yellow (Yellow); Glucose Urine UA Negative (Negative); Ketones Urine Trace mg/dL (Negative); Leukocyte Esterase Ur Trace LEU/UL (Negative); Need Manual Microscopic Reviewed; Nitrate Urine Negative (Negative); Non Pathogenic Casts 0-2; Protein Urine Negative (Negative); RBC Urine 0-2 /hpf (0-2); Squamous Epithelial Cell Urine None seen /hpf (Few); Urobilinogen Urine 0.2 mg/dL (<2.0)
[2023-12-06 20:02] LABS: Add Urine Microscopic? YES
[2023-12-06 20:03] LABS: Specific Grav Ur 1.005 (1.001-1.035)
[2023-12-06] MEDS: CEPHALEXIN 500 MG CAPSULE PO (20:17)
== END 2023-12-06 20:53 | disposition home or self-care (01) ==
PROVIDERS: Emergency Provider Emergency Medicine; PCP Family Medicine
DX: N39.0 Urinary tract infection, site not specified (principal); R10.9 Unspecified abdominal pain; R42 Dizziness and giddiness; F03.90 Unspecified dementia, unspecified severity, without behavioral disturbance, psychotic disturbance, mood disturbance, and anxiety; I10 Essential (primary) hypertension; E03.9 Hypothyroidism, unspecified; Z90.710 Acquired absence of both cervix and uterus; Z90.721 Acquired absence of ovaries, unilateral; R90.82 White matter disease, unspecified
CPT/HCPCS: 36415; 70496; 70498; 71046; 80053; 81001; 83690; 83735; 84484; 85025; 85610; 85730; 87086; 93005; 96361; 96374; 99284; A9270; J1885; J7030; Q9967

== ENCOUNTER 2025-07-28 14:13 | Outpatient (CLI) | payer MEDICARE, SELFPAY ==
--- NOTE | ~2025-07-28 | MM_ITS ---
EXAMINATION: MM screening marie BI w amparo HISTORY: Screening TECHNIQUE: Craniocaudal and mediolateral oblique 3-D tomosynthesis images were obtained and synthetic 2-D images were generated. CAD analysis was submitted and interpreted. COMPARISON: 02/25/2018 BREAST PARENCHYMAL COMPOSITION: Not Dense: The breasts are almost entirely fatty. FINDINGS: There is no evidence of suspicious mass, calcification, or architectural distortion to suggest malignancy. There has been no suspicious interval change. IMPRESSION: 1. No mammographic evidence of malignancy. Recommend routine screening mammography in one year. BI-RADS Category 2: Benign finding(s) Reviewed, dictated and finalized at location Q. IMPRESSION: 1. No mammographic evidence of malignancy. Recommend routine screening mammogra phy in one year. BI-RADS Category 2: Benign finding(s)
--- OUTSIDE RECORDS SUMMARY | 2025-07-28 16:34 | XMS_ITS | Clinical Summary ---
Author Organization [facility] Address [address] [place] [address] Care Team Providers Care Porter Sample Case Name Role Phone Cecelia Tripathi MD Primary Care Provider [phone] Source Comments [facility],non-owned Affiliates and Associated Physician Practices is amultiple site organization consisting of ambulatory clinics and hospital sitesin [place], [place], [place] and [place]. This disclosure is being madepursuant to the Care Everywhere program and may not contain all information available regarding this patient. Last updated 18.[facility] Allergies Active Allergy Reactions Criticality Noted Date Comments Codeine Rash,Itching Medium 09/18/2019 Penicillins Rash,Itching Medium 09/18/2019 Sulfa Drugs Rash,Itching,Palpitations,Unknown Medium 1 11/19/2018 Azithromycin Rash,Itching Medium 09/18/2019 Medications * Be aware that medications may not be up to date on this document. Alwaysverify current medications with the patient. diazePAM (VALIUM) 5 MG tablet once daily as needed 9 Active acyclovir (ZOVIRAX) 400 MG tablet once daily as needed 3 9 Active zolpidem (AMBIEN) 5 MG tablet nightly as needed 9 Active Evening [place] Oil 1000 MG Take by mouth as needed Active Multiple Vitamins-Minera ls (EQ VISION FORMULA 50+ PO) Take by mouth once daily Active Biotin 1 MG Take by mouth once daily Active losartan (COZAAR) 100 MG tablet Take 100 mg by mouth once daily Active hydroCHLOROthia zide (MICROZIDE) 12.5 MG capsule Take 12.5 mg by mouth once daily Active balsalazide (COLAZAL) 750 MG capsule Take 2.25 g by mouth 3 times daily Active vitamin D, ergocalciferol, (DRISDOL) 1.25 MG (37229 UT) capsule Take 50,000 Units by mouth every 7 days Active magnesium oxide (MAG-OX) 400 MG tablet Take 400 mg by mouth 2 times daily Active omeprazole (PRILOSEC) 20 MG capsule Take 20 mg by mouth daily before breakfast Active levothyroxine (Euthyrox) 25 MCG tablet Take 25 mcg by mouth every morning 1 Active metoprolol succinate XL 24hr (Toprol XL) 25 MG tablet Take 25 mg by mouth once daily 2 Active donepezil (Aricept) 5 MG tablet Take 5 mg by mouth at bedtime 2 Active diphenoxylate-a tropine (Lomotil) 2.5-0.025 MG tablet diphenoxylate- atropine 2.5 mg-0.025 mg tablet TAKE 1 TO 2 TABLETS BY MOUTH EVERY 6 HOURS NEEDED Active diazePAM (Valium) 5 MG tablet Take 5 mg by mouth every 6 hours as needed Active valACYclovir (Valtrex) 1 GM tablet TAKE 2 TABLETS BY MOUTH EVERY 12 HOURS FOR 1 DAY 2 Active Active Problems Problem Noted Date Diagnosed Date Diastolic dysfunction 12/09/2019 Abnormal cardiovascular stress test 12/09/2019 Valvular heart disease 11/27/2019 Renal cyst 11/12/2019 Palpitations 11/12/2019 Iron deficiency 11/12/2019 Family history of heart disease 11/12/2019 Overview (05/29/2022): mother and brothets Vitamin D deficiency 07/23/2019 Primary hypertension 07/23/2019 Irritable bowel syndrome 07/23/2019 Insomnia 07/23/2019 Hyperlipidemia 07/23/2019 Herpes simplex 07/23/2019 Chronic urticaria 07/23/2019 Chest pain 07/23/2019 Anxiety 07/23/2019 Abnormal thyroid stimulating hormone (TSH) level 07/23/2019 Cyst of pancreas 04/08/2019 Fatigue 05/17/2017 Overview (05/29/2022): Last Assessment & Plan: Will check hepatitis panel with labs. Last Assessment & Plan: Will check hepatitis panel with labs. Chronic back pain 05/17/2017 Overview (05/29/2022): Last Assessment & Plan: Osteoarthritis seen on xrays. Recommend doing therapy. Possible she could have inflammatory back disease as she has inflammatory back sx's and an abnl colonoscopy. Will try to get results from colonoscopy. Just started on budesonide 2 days ago. Will hold off on starting new medicine at this time. Arthralgia 05/17/2017 Overview (05/29/2022): Last Assessment & Plan: This patient, currently has normal liver,kidney, and muscle enzymes. The CBC was noted to be normal. The ESR and CRP were noted to be normal. There was no evidence of hepatitis B or C. The rheumatoid factor and anti CCP were negative. The uric acid and the DAVIDE level were noted to be normal. The HLA-B27 is negative. The ALEKSANDER and the profile were noted to be negative. The antiphospholipid profile was negative. The x rays revealed no erosive changes consistent with inflammatory arthritis. The US revealed changes consistent with mild synovitis and effusions. Could have seronegative RA or spondylarthritis with heel spurs on xrays or an inflammatory arthritis that can be seen with an inflammatory bowel disease as she was just started on budesonide 2 days ago for an abnl colonoscopy. Pt seen with Dr. Daniel. Family History Medical History Relation Name Comments Cancer - Breast Brother Cancer - Prostate Brother Cancer - Prostate Father None Known Maternal Aunt None Known Maternal Grandfather None Known Maternal Grandmother None Known Maternal Uncle CAD (Coronary Artery Disease) Mother Cancer - Lung Other neice None Known Paternal Aunt None Known Paternal Grandfather None Known Paternal Grandmother None Known Paternal Uncle Dementia Sister 1 CAD (Coronary Artery Disease) Sister 2 Cancer - Breast Sister 2 None Known Sister 3 Asthma Neg Hx CVA Neg Hx Cancer - Other Neg Hx Cancer - Skin, Melanoma Neg Hx Cancer - Skin, Non Melanoma Neg Hx Eczema Neg Hx Hemophilia Neg Hx Psoriasis Neg Hx Relation Name Status Comments Brother Father Maternal Aunt Maternal Grandfather Maternal Grandmother Maternal Uncle Mother Other neice Alive Paternal Aunt Paternal Grandfather Paternal Grandmother Paternal Uncle Sister 1 Sister 2 Alive Sister 3 Alive Social History Tobacco Use Types Packs/Day Years Used Date Smoking Tobacco: Never Smokeless Tobacco: Never Tobacco Cessation:Counseling Given: Yes Alcohol Use Standard Drinks/Week Comments Yes 1 (1 standard drink = 0.6 oz pur e alcohol) 6-7 glasses per week Comments No Sex and Gender Information Value Date Recorded Sex Assigned at Not on file 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 Gender Identity Not on file Sexual Orientation Not on file Last Filed Vital Signs Vital Sign Reading Time Taken Comments Blood Pressure 119/79 03/23/2020 9:47 AM CDT Pulse 77 03/23/2020 9:47 AM CDT Temperature 36.6 C (97.9 F) 03/23/2020 9:18 AM CDT Respiratory Rate 16 03/23/2020 9:47 AM CDT Oxygen Saturation 100% 03/23/2020 9:47 AM CDT Inhaled Oxygen Concentration - - Weight 49.9 kg (110 lb) 03/23/2020 8:12 AM CDT Height 157.5 cm (5' 2) 03/23/2020 8:12 AM CDT Body Mass Index 20.12 03/23/2020 8:12 AM CDT Plan of Treatment Health Maintenance Due Date Last Done Comments BONE DENSITY TESTING 1960 COLOGUARD (AGES 45-75) - COL ON CA SCREENING 1958 COLON MONITORING 1958 COLONOSCOPY - COLON CA SCREENING 1958 CT COLONOGRAPHY - COLON CA SCREENING 1960 Colorectal Cancer Screening 1958 FIT - COLON CA SCREENING 1958 FLEX SIG - COLON CA SCREENING 1958 LIPID TESTING 1960 MEDICARE AWV 12 MONTHS 1958 HEPATITIS C SCREENING 09/06/1976 DTAP/TDAP/TD VACCINES (1 - Tdap) 1977 PNEUMOCOCCAL VACCINE 50+ (1 of 1 - PCV) 2008 ZOSTER VACCINE (1 of 2) 2008 Respiratory Syncytial Virus (RSV) Vaccine Pt: or over 60 yrs (1 - Risk 60-74 years 1-dose series) 2018 MAMMOGRAM 03/10/2023 03/10/2021, 12/28/2019 DEPRESSION SCREENING 10/14/2024 COVID-19 VACCINE (1 - 2023-2 5 season) 2025 INFLUENZA VACCINE (#1) 2025 07/18/2020 HEPATITIS B VACCINE Aged Out No longe r eligible based on patient's age to complete this topic HIB VACCINE Aged Out No longer eligi ble based on patient's age to complete this topic HPV VACCINE Aged Out No longer eligi ble based on patient's age to complete this topic MENINGOCOCCAL (Group B) VACCINE SHARED DECISION-MAKING Aged Out No longer eligible based on patient's age to complete this topic MENINGOCOCCAL GROUPS A/C/Y/W VACCINE Aged Out No longer eligible b ased on patient's age to complete this topic Goals Goal Patient Goal Type Associated Problems Recent Progress Patient-Stated? 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 [id number] PCP - General 09/18/19
--- OUTSIDE RECORDS SUMMARY | 2025-07-28 16:35 | XMS_ITS | Data Portability ---
Author Organization [place] - [facility] [employer], Main Office Address [address] [place] [address] Assessment No assessment recorded. Plan of Treatment Reminders Order Date Submit Date Provider Last Modified By Organization Details Last Modified Time Details Appointments None recorded. Lab CBC w/ auto diff 2024 025 [facility]alor [employer] [facility], [address], [address], [place], [address], 5 08:55:09 CBC w/ auto diff 2024 025 [employer]alor [employer] [facility], [address], [place], [address], 5 08:55:23 HbA1c (hemoglobi n A1c), blood 2024 025 [facility]alor [employer] [facility], [address], [place], [address], 5 08:54:36 TSH + free T4, serum 2024 025 [employer]alor [employer] [facility], [address], [place], [address], 5 08:54:35 lipid panel, serum 2023 024 LAYA [employer] [facility], [address], [place], [address], 4 13:09:45 TSH + free T4, serum 2023 024 [facility], [address], [address], [place], [address], 4 13:09:46 CBC w/ auto diff 2023 024 [facility], [address], [address], [place], [address], 4 13:09:47 vitamin D, 25-hydroxy , total, serum 2023 024 [employer] [facility], [address], [address], [place], [address], 4 13:09:47 noninvasiv e colorectal cancer DNA + occult blood screening, QL, stool 2023 024 [facility], [address], [address], [place], [address], 4 11:59:58 HbA1c (hemoglobi n A1c), blood 2023 024 [employer] [facility], [address], [address], [place], [address], 4 13:09:48 CMP, serum or plasma 2023 024 [employer] [facility], [address], [address], [place], [address], 4 13:09:46 vitamin D, 25-hydroxy , total, serum 2023 024 LAYA Not available 4 23:49:43 CBC w/ auto diff 2023 024 LAYA Not available 4 21:37:25 BMP, serum or plasma 2023 024 LAYA Not available 4 22:15:18 TSH, serum or plasma 2023 024 LAYA Not available 4 22:44:35 T4, free, serum 2023 024 LAYA Not available 4 22:12:50 vitamin B12, serum 2023 024 LAYA Not available 4 23:00:42 folate, serum 2023 024 LAYA Not available 4 23:00:52 Referral neurologis t referral - Call son to schedule. [facility] -Son- Uriel Carroll- 2024 025 [email or web address] [facility] Neurology [facility], [address] [place] [address] , [address], [place], [address], 5 09:43:[address] referral - Call son to schedule. [facility] Thank you. 2024 025 NANCY Velarde MD, [address] [facility] [address], [address], [place], [address], 5 16:42:46 neurologis t referral - Please call patient to schedule an appointmen t. Thank you. 2023 024 [email or web address] [facility] Neurology [facility], [address] [place] [address] , [address], [place], [address], 4 10:26:41 dermatolog ist referral - Please call patient to schedule an appointmen t. Thank you. 2023 024 [email or web address] Jenni Kruse MD (Dermatology) , [address] [facility] , [address], [place], [address], 4 08:54:50 neurologis t referral - Please call patient to schedule an appointmen t. Thank you. Pt has a [facility] ip with Dr. Saxena 2023 024 [email or web address] Not available 4 08:50:37 Procedures None recorded. Surgeries None recorded. Imaging MAMMO, screening, digital, bilateral - Please call patient to schedule. [facility] -Danni Carroll-[phone] ([employer]), [address] [place], [address], 5 15:26:40 DEXA, axial skeleton - [facility]- [address] ([employer]), [address] [place], [address], 5 15:26:41 MAMMO, screening, digital, bilateral - Please call pt to schedule 2023 024 [facility], [address] [place] [address] [place], [address], 4 10:22:[address] - ER 3 mg capsule,laine martin nded release 2024 025 [email or web address] [facility], [address] [place], [address], 5 15:55:51 donepezil 5 mg tablet 2024 025 [id number] [facility] [address] [place], [address], 5 15:55:51 triamcinol one acetonide 0.1 % topical cream 2024 025 [email or web address] [facility] [address], [address] [place], [address], 5 15:55:51 losartan 100 mg tablet 2024 025 [id number] [facility] [address], [address] [place], [address], 15:55:51 levothyrox ine 25 mcg capsule 2024 025 [email or web address] [facility] [address], [address] [place], [address], 15:55:51 donepezil 10 mg tablet 2023 024 [facility] [address], [address] [place], [address], 12:47:11 losartan 100 mg tablet 2023 024 [facility] [address], [address] [place], [address], 4 12:47:12 Vitamin D3 50 mcg (2,000 unit) capsule 2023 024 [email or web address] [facility] [address], [address] [place], [address], 15:00:13 prednisone 20 mg tablet 2023 024 [facility] [address], [address] [place], [address], 14:41:14 Patient TargetsNo targets recorded. Patient Instructions Encounter Date Encounter Id Patient Instructions Last Modified By Organization Details Last Modified Time 06/11/2024 [id number] dementia rating scale-2* LAYA Not available 06/24/2024 09:48:35 depression screening* LAYA Not available 06/19/2024 16:39:12 alcohol misuse* LAYA Not available 06/19/2024 16:39:00 multi-dimensiona l health assessment questionnaire* LAYA Not available 06/24/2024 09:48:28 Personalized Hea lt Plan and Screening Recommendations Advance Directives - Do you have one? Yes I have no recommendations Advance Directives - Do we have your advance directive on file in your health record? I have no recommendations Primary Prevention/Interven tion (prevents or decreases the chance of common diseases from occurring) Smoking Risk: Non Smoker I have no recommendations Alcohol Misuse Screening: Negative I have no recommendations Weight: Overweight try to lose 5% of your body weight Physical activity: Appropriate physical activity minimum of 20-30 minutes activity that causes mild breathlessness/day Nutrition: Average Eat Heart Healthy Diet Fall Risk (screened today): Intermediate I have no recommendations Vaccines Pneumococcal: No further needed Influenza: Your next one in the fall of this year Chronic Disease Risks Stroke: Intermediate Risk Active diagnosis, Continue current treatment plan Heart Attack: Intermediate Risk Active diagnosis, Continue current treatment plan Clogging of the Arteries: Intermediate Risk Active diagnosis, Continue current treatment plan Diabetes: Low Risk Active diagnosis, Continue current treatment plan Secondary Prevention/Interven tion (detects treatable diseases before they may cause symptoms, disability, or ) Breast Cancer Screening with mammogram: No screening necessary Completed 05/18/24 Cervical/Uterine/Ov magdalena Cancer Screening: No screening necessary Osteoporosis Screening: No screening necessary Completed 03/27/22 Date Screening Last Performed: Colon Cancer Screening: Colonoscopy Recommended today Date Screening Last Performed: Eye Disease Screening: No Eye exam necessary Dementia Risk: High I have no recommendations : Patient has family hx Depression Screening: Negative I have no recommendations [email or web address] Not available 06/10/2024 15:08:25 06/15/2025 [id number] dementia rating scale-2* [email or web address] Not available 06/15/2025 15:55:56 multi-dimensiona l health assessment questionnaire* [email or web address] Not available 06/15/2025 15:55:55 care plan* Not available 11/2024 15:55:54 advance directiv es: care instructions Not available 06/15/2025 15:55:51 advance care planning: care instructions [email or web address] Not available 06/15/2025 15:55:51 [place] Advance Directives [email or web address] Not available 06/15/2025 15:55:51 Reason for Referral Neurologist Referral for Kvng pierce Please call patient to schedule an appointment. Thank you. Pt has a preexisting relationship with Dr. Saxena Referring Physician: Cecelia Tripathi, [facility], Encounter Date: 02/12/2024 Bar Helper Referral for R eferral needed skin lesions to extremities Please call patient to schedule an appointment. Thank you. Referring Physician: Neeraj Butterfield [facility], Encounter Date: 06/11/2024 Neurologist Referral for Dem entia dementia Please call patient to schedule an appointment. Thank you. Referring Physician: Neeraj Butterfield [facility], Encounter Date: 07/09/2024 Service Trainer Referral for Gy necologic examination Call son to schedule. [facility] Uriel JuanRbvdxpal-[phone] Thank you. Referring Physician: Teresa Kinney [facility], Encounter Date: 06/15/2025 Neurologist Referral for Dem entia Call son to schedule. [facility] Uriel Phofblyb-[phone] Referring Physician: Teresa Kinney [facility], Encounter Date: 06/15/2025 Results Created Date Observation Date Name Description Value Unit Range Abnormal Flag Note LastModifiedBy Organization Detail LastModifiedTime 06/12/20 24 06/12/2024 LIPID PANEL , STAND CORNELIA cholesterol, total 276 mg/dL <200 high Not Available [employer] [place] [address] [place], [address], 06/12/2024 13:09:45 06/12/20 24 06/12/2024 LIPID PANEL , STAND CORNELIA HDL cholesterol 100 mg/dL > or = 50 normal Not Available [employer] [address] [place] [address] [place], [address], 06/12/2024 13:09:45 06/12/20 24 06/12/2024 LIPID PANEL , STAND CORNELIA triglyceride s 148 mg/dL <150 normal Not Available [employer] [address] [place] [address] [place], [address], 06/12/2024 13:09:45 06/12/20 24 06/12/2024 LIPID PANEL , STAND CORNELIA LDL-choleste rol 149 mg/dL _(chavo c) high Refer ence range : <100 Jenny able range <100 mg/dL for prima ry preve ntion ; <70 mg/dL for patie nts with CHD or diabe tic patie nts with > or = 2 CHD risk facto rs. LDL-C is now calcu lated using the Anushka n-Hop kins calcu estelle n, which is a valid ated novel metho d provi ding olivier r accur acy than the Fried lilian equat ion in the estim ation of LDL-C . Anushka vargas SS et al. COLTON. 2013; 310(1 9): 2061- 2068 (http ://ed ucati on.Qu LANDBAY. com/f aq/FA Q164) Not Available [employer] [address] [address] [place], [address], 06/12/2024 13:09:45 06/12/20 24 06/12/2024 LIPID PANEL , STAND CORNELIA chol/HDLC ratio 2.8 (calc ) <5.0 normal Not Available [employer] [address] [address] [place], [address], 06/12/2024 13:09:45 06/12/20 24 06/12/2024 LIPID PANEL , STAND CORNELIA non HDL cholesterol 176 mg/dL _(chavo c) <130 high For patie nts with diabe maurilio plus 1 major ASCVD risk facto r, treat ing to a non-H DL-C goal of <100 mg/dL (LDL- C of <70 mg/dL ) is consi dered a thera peuti c optio n. Not Available [employer] [address] [place] [address] [place], [address], 06/12/2024 13:09:45 06/12/20 24 06/12/2024 TSH+F REE T4 TSH 0.51 mIU/L 0.40-4 .50 normal Not Available [employer] [address] [address] [place], [address], 06/12/2024 13:09:46 06/12/20 24 06/12/2024 TSH+F REE T4 T4, free 1.2 NG/dL 0.8-1. 8 normal Not Available [address], [address], 06/12/2024 13:09:46 06/12/20 24 06/12/2024 COMPR EHENS JORDON METAB OLIC PANEL glucose 103 mg/dL 65-99 high Fasti ng refer ence inter leidy For someo ne witho ut known diabe maurilio, a gluco se value betwe en 100 and 125 mg/dL is consi stent with predi abete s and shoul d be confi rmed with a follo w-up test. Not Available [address], [address], 06/12/2024 13:09:46 06/12/20 24 06/12/2024 COMPR EHENS JORDON METAB OLIC PANEL urea nitrogen (BUN) 11 mg/dL 7-25 normal Not Available [address], [address], 06/12/2024 13:09:46 06/12/20 24 06/12/2024 COMPR EHENS JORDON METAB OLIC PANEL creatinine 0.93 mg/dL 0.50-1 .05 normal Not Available [address], [address], 06/12/2024 13:09:46 06/12/20 24 06/12/2024 COMPR EHENS JORDON METAB OLIC PANEL eGFR 68 mL/mi n/1.7 3m2 > or = 60 normal Not Available [address], [address], 06/12/2024 13:09:46 06/12/20 24 06/12/2024 COMPR EHENS JODRON METAB OLIC PANEL BUN/creatini ne ratio SEE NOTE: (calc ) 6-22 Not Repor pietro: BUN and Creat inine are withi n refer ence range . Not Available [address] [address] [place], [address], 06/12/2024 13:09:46 06/12/20 24 06/12/2024 COMPR EHENS JORDON METAB OLIC PANEL sodium 137 mmol/ L 135-14 6 normal Not Available [address], [address], 06/12/2024 13:09:46 06/12/20 24 06/12/2024 COMPR EHENS JORDON METAB OLIC PANEL potassium 3.8 mmol/ L 3.5-5. 3 normal Not Available [address], [address], 06/12/2024 13:09:46 06/12/20 24 06/12/2024 COMPR EHENS JORDON METAB OLIC PANEL chloride 101 mmol/ L 98-110 normal Not Available [address] [address] [place], [address], 06/12/2024 13:09:46 06/12/20 24 06/12/2024 COMPR EHENS JORDON METAB OLIC PANEL carbon dioxide 26 mmol/ L 20-32 normal Not Available [address], [address], 06/12/2024 13:09:46 06/12/20 24 06/12/2024 COMPR EHENS JORDON METAB OLIC PANEL calcium 9.6 mg/dL 8.6-10 .4 normal Not Available [facility] [place] [address] [place], [address], 06/12/2024 13:09:46 06/12/20 24 06/12/2024 COMPR EHENS JORDON METAB OLIC PANEL protein, total 7.7 g/dL 6.1-8. 1 normal Not Available [address], [address], 06/12/2024 13:09:46 06/12/20 24 06/12/2024 COMPR EHENS JORDON METAB OLIC PANEL albumin 4.5 g/dL 3.6-5. 1 normal Not Available [address], [address], 06/12/2024 13:09:46 06/12/20 24 06/12/2024 COMPR EHENS JORDON METAB OLIC PANEL globulin 3.2 g/dL_ (calc ) 1.9-3. 7 normal Not Available [address], [address], 06/12/2024 13:09:46 06/12/20 24 06/12/2024 COMPR EHENS JORDON METAB OLIC PANEL albumin/glob ulin ratio 1.4 (calc ) 1.0-2. 5 normal Not Available [address], [address], 06/12/2024 13:09:46 06/12/20 24 06/12/2024 COMPR EHENS JORDON METAB OLIC PANEL bilirubin, total 1.1 mg/dL 0.2-1. 2 normal Not Available [address], [address], 06/12/2024 13:09:46 06/12/20 24 06/12/2024 COMPR EHENS JORDON METAB OLIC PANEL alkaline phosphatase 65 U/L 37-153 normal Not Available [facility] [employer] [address], [address], 06/12/2024 13:09:46 06/12/20 24 06/12/2024 COMPR EHENS JORDON METAB OLIC PANEL AST 20 U/L 10-35 normal Not Available [address], [address], 06/12/2024 13:09:46 06/12/20 24 06/12/2024 COMPR EHENS JORDON METAB OLIC PANEL ALT 19 U/L 6-29 normal Not Available [address], [address], 06/12/2024 13:09:46 06/12/20 24 06/12/2024 CBC (INCL UDES DIFF/ PLT) white blood cell count 6.2 thous and/u L 3.8-10 .8 normal Not Available [address], [address], 06/12/2024 13:09:47 06/12/20 24 06/12/2024 CBC (INCL UDES DIFF/ PLT) red blood cell count 4.11 ayana on/uL 3.80-5 .10 normal Not Available [address], [address], 06/12/2024 13:09:47 06/12/20 24 06/12/2024 CBC (INCL UDES DIFF/ PLT) hemoglobin 13.4 g/dL 11.7-1 5.5 normal Not Available [address], [address], 06/12/2024 13:09:47 06/12/20 24 06/12/2024 CBC (INCL UDES DIFF/ PLT) hematocrit 41.3 % 35.0-4 5.0 normal Not Available [address], [address], 06/12/2024 13:09:47 06/12/20 24 06/12/2024 CBC (INCL UDES DIFF/ PLT) MCV 100.5 fL 80.0-1 00.0 high Not Available [address], [address], 06/12/2024 13:09:47 06/12/20 24 06/12/2024 CBC (INCL UDES DIFF/ PLT) MCH 32.6 pg 27.0-3 3.0 normal Not Available [address], [address], 06/12/2024 13:09:47 06/12/20 24 06/12/2024 CBC (INCL UDES DIFF/ PLT) MCHC 32.4 g/dL 32.0-3 6.0 normal Not Available [address], [address], 06/12/2024 13:09:47 06/12/20 24 06/12/2024 CBC (INCL UDES DIFF/ PLT) RDW 12.3 % 11.0-1 5.0 normal Not Available [address], [address], 06/12/2024 13:09:47 06/12/20 24 06/12/2024 CBC (INCL UDES DIFF/ PLT) platelet count 238 thous and/u L 140-40 0 normal Not Available [address], [address], 06/12/2024 13:09:47 06/12/20 24 06/12/2024 CBC (INCL UDES DIFF/ PLT) MPV 9.6 fL 7.5-12 .5 normal Not Available [address], [address], 06/12/2024 13:09:47 06/12/20 24 06/12/2024 CBC (INCL UDES DIFF/ PLT) absolute neutrophils 3106 cells /uL 1500-7 800 normal Not Available [address], [address], 06/12/2024 13:09:47 06/12/20 24 06/12/2024 CBC (INCL UDES DIFF/ PLT) absolute lymphocytes 2288 cells /uL 850-39 00 normal Not Available [address], [address], 06/12/2024 13:09:47 06/12/20 24 06/12/2024 CBC (INCL UDES DIFF/ PLT) absolute monocytes 614 cells /uL 200-95 0 normal Not Available [address], [address], 06/12/2024 13:09:47 06/12/20 24 06/12/2024 CBC (INCL UDES DIFF/ PLT) absolute eosinophils 161 cells /uL 15-500 normal Not Available [address], [address], 06/12/2024 13:09:47 06/12/20 24 06/12/2024 CBC (INCL UDES DIFF/ PLT) absolute basophils 31 cells /uL 0-200 normal Not Available [address], [address], 06/12/2024 13:09:47 06/12/20 24 06/12/2024 CBC (INCL UDES DIFF/ PLT) neutrophils 50.1 % normal Not Available [address], [address], 06/12/2024 13:09:47 06/12/20 24 06/12/2024 CBC (INCL UDES DIFF/ PLT) lymphocytes 36.9 % normal Not Available [address], [address], 06/12/2024 13:09:47 06/12/20 24 06/12/2024 CBC (INCL UDES DIFF/ PLT) monocytes 9.9 % normal Not Available [address], [address], 06/12/2024 13:09:47 06/12/20 24 06/12/2024 CBC (INCL UDES DIFF/ PLT) eosinophils 2.6 % normal Not Available [address], [address], 06/12/2024 13:09:47 06/12/20 24 06/12/2024 CBC (INCL UDES DIFF/ PLT) basophils 0.5 % normal Not Available [employer] [facility] [address] [place], [address], 06/12/2024 13:09:47 06/12/20 24 06/12/2024 VITAM IN D,25- OH,TO TOM,I A vitamin D,25-oh,tota l,ia 27 NG/mL 30-100 low Vitam in D Statu s 25-OH Vitam in D: Defic iency : <20 ng/mL Insuf ficie ncy: 20 - 29 ng/mL Optim al: > or = 30 ng/mL For 25-OH Vitam in D testi ng on patie nts on D2-serna pplem entat ion and patie nts for whom quant itati on of D2 and D3 fract ions is requi red, the [facility] [employer](TM ) 25-OH VIT D, (D2,D 3), LC/MS /MS is recom joshua d: order code 71626 (tommy ents >2yrs ). See Note 1 Note 1 For addit ional infor zain sanchez e refer to http: //jesus Shultz stDia gnost ics.c om/fa q/FAQ 199 (This link is being provi ded for infor carmine ledbetter/ kenny alarcon purpo ses only. ) Not Available [facility] [address] [place], [address], 06/12/2024 13:09:47 06/12/20 24 06/12/2024 HEMOG LOBIN A1C hemoglobin A1C 5.2 %_of_ total _HGB <5.7 normal For the purpo se of scree alec for the prese nce of diabe maurilio: <5.7% Consi stent with the absen ce of diabe maurilio 5.7-6 .4% Consi stent with incre ased risk for diabe maurilio (pred iabet es) > or =6.5% Consi stent with diabe maurilio This assay resul t is consi stent with a decre ased risk of diabe maurilio. Curre ntly, no conse nsus exist s domitila mcmullen use of hemog lobin A1c for diagn osis of diabe maurilio in child mariah. Accor benedict to Ameri can Diabe maurilio Assoc iatio n (ADA) guide lines , hemog lobin A1c <7.0% repre sents optim al contr ol in non-p regna nt diabe tic patie nts. Diffe rent metri cs may apply to speci fic patie nt popul ation s. Stand ards of Medic al Care in Diabe maurilio(A DA). This test was perfo rmed on the [facility] c503 platf orm. Effec tive , a feliz e in test platf orms from the [facility]bot t Archi tect to the [facility] c503 may have shift ed HbA1c resul ts otoniel red to histo rical resul ts. Based on labor atory valid ation testi ng condu cted at [facility] , the Kath platf orm relat jordon to the Abbot t platf orm had an avera ge incre ase in HbA1c value of < or = 0.3%. This diffe rence is withi n accep pietro varia bilit y estab lishe d by the Natio nal [employer] hemog lobin Stand ardiz ation Progr am. Note that not all indiv idual s will have had a shift in their resul ts and direc t otoniel rison s betwe en histo rical and curre nt resul ts for testi ng condu cted on diffe rent platf orms is not recom joshua d. NO COLLE CTION DATE RECEI EFFIE. WE HAVE USED THE DATE THE SPECI MEN WAS RECEI EFFIE BY THIS LABOR ATORY THE COLLE CTION DATE. IF THIS IS INCOR RECT, PLEAS E CONTA CT CLIEN T SERVI YOJANA. PHONE NUMBE R: [phone] Not Available [facility] [facility] [address] [facility] [place], [address], 06/12/2024 13:09:48 02/12/20 24 02/12/2024 CBC/C OMPLE TE BLD COUNT W/DIF F white blood cells 5.3 x10'3 /uL 4.2-10 .8 Not Available [facility] ([facility]) [address] [facility] [place], [address], 02/12/2024 21:37:25 02/12/20 24 02/12/2024 CBC/C OMPLE TE BLD COUNT W/DIF F red blood cells 4.25 x10'6 /uL 3.80-5 .20 Not Available [facility] (Lab) [address] [place], [address], 02/12/2024 21:37:25 02/12/20 24 02/12/2024 CBC/C OMPLE TE BLD COUNT W/DIF F hemoglobin 14.1 g/dL 12.0-1 5.6 Not Available [facility] (Lab) [address] [place], [address], 02/12/2024 21:37:25 02/12/20 24 02/12/2024 CBC/C OMPLE TE BLD COUNT W/DIF F hematocrit 42.0 % 35.7-4 5.7 Not Available [facility] (Lab) [address] [place], [address], 02/12/2024 21:37:25 02/12/20 24 02/12/2024 CBC/C OMPLE TE BLD COUNT W/DIF F mean red cell volume 98.8 fL 82.0-9 9.0 Not Available [facility] (Lab) [address] [place], [address], 02/12/2024 21:37:25 02/12/20 24 02/12/2024 CBC/C OMPLE TE BLD COUNT W/DIF F mean red cell hemoglobin 33.2 pg 27.0-3 3.0 high Not Available [facility] (Lab) [address] [place], [address], 02/12/2024 21:37:25 02/12/20 24 02/12/2024 CBC/C OMPLE TE BLD COUNT W/DIF F mean RBC HGB concentratio n 33.6 g/dL 31.0-3 6.0 Not Available [facility] (Lab) [address] [place], [address], 02/12/2024 21:37:25 02/12/20 24 02/12/2024 CBC/C OMPLE TE BLD COUNT W/DIF F red cell distribution width 12.4 % 11.8-1 5.5 Not Available [facility] (Lab) [address] [place], [address], 02/12/2024 21:37:25 02/12/20 24 02/12/2024 CBC/C OMPLE TE BLD COUNT W/DIF F platelets 253 x10'3 /uL 150-40 0 Not Available [facility] (Lab) [address] [place], [address], 02/12/2024 21:37:25 02/12/20 24 02/12/2024 CBC/C OMPLE TE BLD COUNT W/DIF F mean platelet volume 10.3 fL 9.0-12 .4 Not Available [facility] (Lab) [address] [place], [address], 02/12/2024 21:37:25 02/12/20 24 02/12/2024 CBC/C OMPLE TE BLD COUNT W/DIF F neutrophils 51.2 % 39.0-7 2.0 Not Available [facility] (Lab) [address] [place], [address], 02/12/2024 21:37:25 02/12/20 24 02/12/2024 CBC/C OMPLE TE BLD COUNT W/DIF F lymphocytes 33.1 % 16.0-4 7.0 Not Available [facility] (Lab) [address] [place], [address], 02/12/2024 21:37:25 02/12/20 24 02/12/2024 CBC/C OMPLE TE BLD COUNT W/DIF F monocytes 11.8 % 5.0-12 .0 Not Available [facility] (Lab) [address] [place], [address], 02/12/2024 21:37:25 02/12/20 24 02/12/2024 CBC/C OMPLE TE BLD COUNT W/DIF F eosinophils 3.0 % 1.0-7. 0 Not Available [facility] (Lab) [address] [place], [address], 02/12/2024 21:37:25 02/12/20 24 02/12/2024 CBC/C OMPLE TE BLD COUNT W/DIF F basophils 0.9 % 0.0-2. 0 Not Available [facility] (Lab) [address] [place], [address], 02/12/2024 21:37:25 02/12/20 24 02/12/2024 CBC/C OMPLE TE BLD COUNT W/DIF F immature granulocytes 0.0 % 0.00-0 .50 Not Available [facility] (Lab) [address] [place], [address], 02/12/2024 21:37:25 02/12/20 24 02/12/2024 CBC/C OMPLE TE BLD COUNT W/DIF F neutrophils, absolute count 2.73 x10'3 /uL 1.5-8. 0 Not Available [facility] (Lab) [address] [place], [address], 02/12/2024 21:37:25 02/12/20 24 02/12/2024 CBC/C OMPLE TE BLD COUNT W/DIF F lymphocytes, absolute count 1.77 x10'3 /uL 1.07-3 .43 Not Available [facility] (Lab) [address] [place], [address], 02/12/2024 21:37:25 02/12/20 24 02/12/2024 CBC/C OMPLE TE BLD COUNT W/DIF F monocytes, absolute count 0.63 x10'3 /uL 0.29-0 .99 Not Available [facility] (Lab) [address] [place], [address], 02/12/2024 21:37:25 02/12/20 24 02/12/2024 CBC/C OMPLE TE BLD COUNT W/DIF F eosinophils, absolute count 0.16 x10'3 /uL 0.02-0 .53 Not Available [facility] (Lab) [address] [place], [address], 02/12/2024 21:37:25 02/12/20 24 02/12/2024 CBC/C OMPLE TE BLD COUNT W/DIF F basophils, absolute count 0.05 x10'3 /uL 0.01-0 .08 Not Available [facility] (Lab) [address] [place], [address], 02/12/2024 21:37:25 02/12/20 24 02/12/2024 CBC/C OMPLE TE BLD COUNT W/DIF F immature granulocytes ,absolute 0.00 x10'3 /uL 0.00-0 .05 Not Available [facility] (Lab) [address] [place], [address], 02/12/2024 21:37:25 02/12/20 24 02/12/2024 CBC/C OMPLE TE BLD COUNT W/DIF F nucleated red blood cells 0.0 % -0 Not Available [facility] (Lab) [address] [place], [address], 02/12/2024 21:37:25 02/12/20 24 02/12/2024 CBC/C OMPLE TE BLD COUNT W/DIF F NRBC# 0.00 x10'3 /uL Not Available [facility] (Lab) [address] [place], [address], 02/12/2024 21:37:25 02/12/20 24 02/12/2024 VITAM IN D 25-HY DROXY vd25oh 38.4 NG/mL 30-100 Vitam in D Statu s: Defic ient: <20 ng/mL Insuf ficie nt: 20-29 ng/mL Suffi cient : 30-10 0 ng/mL Not Available [facility] (Lab) [address] [place], [address], 02/12/2024 22:12:17 02/12/20 24 02/12/2024 T4 FREE free T4 1.02 NG/dL 0.78-2 .19 Not Available [facility] (Lab) [address] [place], [address], 02/12/2024 22:12:50 02/12/20 24 02/12/2024 BASIC METAB OLIC PANEL sodium 138 mmol/ L 137-14 5 Not Available [facility] (Lab) [address] [place], [address], 02/12/2024 22:15:18 02/12/20 24 02/12/2024 BASIC METAB OLIC PANEL potassium 3.8 mmol/ L 3.5-5. 1 Not Available [facility] (Lab) [address] [place], [address], 02/12/2024 22:15:18 02/12/20 24 02/12/2024 BASIC METAB OLIC PANEL chloride 104 mmol/ L 98-107 Not Available [facility] (Lab) [address] [place], [address], 02/12/2024 22:15:18 02/12/20 24 02/12/2024 BASIC METAB OLIC PANEL carbon dioxide 25 mmol/ L 22-30 Not Available [facility] (Lab) [address] [place], [address], 02/12/2024 22:15:18 02/12/20 24 02/12/2024 BASIC METAB OLIC PANEL anion gap 12.8 mmol/ L 14-22 low Not Available [facility] (Lab) [address] [place], [address], 02/12/2024 22:15:18 02/12/20 24 02/12/2024 BASIC METAB OLIC PANEL glucose 100 mg/dL 70-99 high Not Available [facility] (Lab) [address] [place], [address], 02/12/2024 22:15:18 02/12/20 24 02/12/2024 BASIC METAB OLIC PANEL BUN 16 mg/dL 8-19 Not Available [facility] (Lab) [address] [place], [address], 02/12/2024 22:15:18 02/12/20 24 02/12/2024 BASIC METAB OLIC PANEL creatinine 0.89 mg/dL 0.66-1 .25 Not Available [facility] (Lab) [address] [place], [address], 02/12/2024 22:15:18 02/12/20 24 02/12/2024 BASIC METAB OLIC PANEL GFR >60 Refer ence Range : [place] [facility] GFR Healt hy Adult : >60 mL/mi n/1.7 3 m2 Chron ic Kidne y Disea se: 15-60 mL/mi n/1.7 3 m2 Kidne y Failu re: <15/m L/min /1.73 m2 www.n iddk. nih.g ov The MDRD study equat ion has not been valid ated in child mariah <18 years of age; pregn ant women ; the elder ly >85 years of age; or in some racia l or ethni c subgr oups, such as Hispa nics. Outsi de the valid ated osiel eters , estim ated GFR is less accur ate, requi ring clini chavo judgm ent on a case- by-ca se basis . Clini chavo inter preta tion for other races and ages must be made by the clini chula. The MDRD study equat ion has not been valid ated for the evalu ation of serum creat inine relat ed to nutri nathaly l statu s or medic ation usage . For perso ns <18 years of age, a pedia tric GFR calcu lator is avail able on the [facility] websi te: https ://miles resendiz.yonas pricey.o rg/pr ofess ional s/kdo qi/gf r_cal culat or Not Available [facility] (Lab) [address] [place], [address], 02/12/2024 22:15:18 02/12/20 24 02/12/2024 BASIC METAB OLIC PANEL calcium 10.1 mg/dL 8.4-10 .2 Not Available [facility] (Lab) [address] [place], [address], 02/12/2024 22:15:18 02/12/20 24 02/12/2024 TSH thyroid-stim ulating hormone 0.592 uIU/m L 0.465- 4.680 Not Available [facility] (Lab) [address] [place], [address], 02/12/2024 22:44:35 02/12/20 24 02/12/2024 VITAM IN B12 (ATIF GAYATHRI ) vb12 985 pg/mL 239-93 1 high Not Available [facility] (Lab) [address] [place], [address], 02/12/2024 23:00:42 02/12/20 24 02/12/2024 FOLAT E, SERUM /PLAS MA folate 9.91 NG/mL 2.76-2 0.0 Not Available [facility] (Lab) [address] [place], [address], 02/12/2024 23:00:52 06/25/20 24 06/25/2024 COLOG UARD cologuard result reportable NEGATI VE negati ve normal NEGAT JORDON TEST RESUL T. A negat jordon Colog uard resul t indic ates a low likel ihood that a color ectal cance r (CRC) or advan sophia adeno ma (rickie omato us polyp s with more advan sophia pre-m align ant featu res) is prese nt. The nemours foundation e that a perso n with a negat jordon Colog uard test has a color ectal cance r is less than 1 in 1500 (nega tive predi ctive value >99.9 %) or has an advan sophia adeno ma is less than 5.3% (nega tive predi ctive value 94.7% ). These data are based on a prosp ectiv e cross -sect ional study of 10,00 0 indiv idual s at [place] [facility] risk for color ectal cance r who were scree mae with both Colog uard and colon oscop y. (Kathy Russell et al, N Engl J Med 2014; 370(1 4):12 86-12 97) The curly l value (refe rence range ) for this assay is negat jordon. COLOG UARD RE-SC REESANGEETA NG RECOM MENDA TION: Perio dic color ectal cance r scree alec is an impor tant part of preve ntive healt hcare for asymp tomat ic indiv idual s at [place] risk for color ectal cance r. Follo wing a negat jordon Colog uard resul t, the Ameri can Cance r Socie ty and U.S. Multi -Soci ety Task Force scree alec guide lines recom mend a Colog uard re-sc reesangeeta ng inter leidy of 3 years . Refer ences : Ameri can Cance r Socie ty Guide line for Color ectal Cance r Scree alec: https ://miles w.can cer.o rg/ca ncer/ colon -rect al-ca ncer/ detec tion- diagn osis- stagi ng/ac s-rec ommen datio ns.ht ml.; Luis DALY, Travon moore CR, Morales McintoshK, Color ectal Cance r Scree alec: Recom menda tions for Physi cians and Patie nts from the U.S. Multi -Soci ety Task Force on Color ectal Cance r Dora michael , Am Dayna sneed y 2017; 112:1 016-1 030. TEST DESCR IPTIO N: [place] site algor ithmi c kamari sis of stool DNA-b davis watkins with hemog lobin immun oassa y. Quant itati ve value s of indiv idual bioma rkers are not repor table and are not assoc iated with indiv idual bioma rker resul t refer ence range s. Colog uard is inten ded for color ectal cance r scree alec of adult s of eithe r sex, 45 years or older , who are at [facility] for color ectal cance r (CRC) . Colog uard has been appro effie for use by the U.S. FDA. The perfo rmanc e of Colog uard was estab lishe d in a cross secti onal study of [facility] adult s aged 50-84 . Colog uard perfo rmanc e in patie nts ages 45 to 49 years was estim ated by sub-g roup kamari sis of near- age group s. Colon oscop ies perfo rmed for a posit jordon resul t may find as the most clini savana signi magda castillo n: color ectal cance r [4.0% ], advan sophia adeno ma (incl uding sessi le fatou pietro polyp s great er than or equal to 1cm diame ter) [20%] or non- advan sophia adeno ma [31%] ; or no color ectal neopl antelmo [45%] . These estim ates are deriv ed from a prosp ectiv e cross -sect ional scree alec study of 10,00 0 indiv idual s at [facility] risk for color ectal cance r who were scree mae with both Colog uard and colon oscop y. (Kathy Connors al, N Engl J Med 2014; 370(1 4):12 86-12 97.) Colog uard may produ ce a false negat jordon or false posit jordon resul t (no color ectal cance r or preca ncero us polyp prese nt at colon oscop y follo w up). A negat jordon Colog uard test resul t does not guara ntee the absen ce of CRC or advan sophia adeno ma (pre- cance r). The curre nt Colog uard scree alec inter leidy is every 3 years . (Amer ican Cance r Socie ty and U.S. Multi -Soci ety Task Force ). Colog uard perfo rmanc e data in a 10,00 0 patie nt pivot al study using colon oscop y as the refer ence metho d can be acces sed at the follo wing locat ion: www.e xactl abs.c om/re sults . Addit ional descr iptio n of the Colog uard test proce ss, warni ngs and preca ution s can be found at www.c olalexiau cornelia.c om. Not Available [facility] [address], [place], [address], 06/30/2024 11:59:58 06/23/20 24 06/23/2024 MAMMO , scree alec, digit al, bilat eral No observ ation record ed. [email or web address] [facility] [address] [place] [address], [place], [address], 07/03/2024 12:23:04 06/23/20 24 06/23/2024 MAMMO , scree alec, digit al, bilat eral No observ ation record ed. [email or web address] [facility] [address] [place], [address], 07/02/2024 16:39:34 Result Notes None recorded. Problems Name Problem SNOMED Code Status Onset Date Resolution Date Notes Provider Name and Address Organization Details Recorded Time Irritable bowel syndrome 99828268 Active Not Available [facility] 3 11:58:19 Chronic back pain 767988258 Active Not Available [facility] 3 11:58:19 Thyroid hormone tests outside reference range 990861707 Active Not Available [facility] 3 11:58:19 Chronic diarrhea of unknown origin 57251834 Active Not Available [facility] 3 11:58:19 Insomnia 663754457 Active Not Available [facility] 3 11:58:19 Chronic diarrhea 834347412 Active Not Available [facility] 3 11:58:19 Urinary symptoms 055245204 Active Not Available [facility] 3 11:58:19 Chest pain 39674755 Active Not Available [facility] 3 11:58:19 Vitamin D deficiency 47247172 Active Not Available [facility] 3 11:58:19 Malignant neoplasm of skin 970813482 Active ?bcc Not Available [facility] 3 11:58:19 Hypertensiv e disorder 49127916 Active Not Available [facility] 3 11:58:19 Multiple skin tags 052888696 Active Not Available [facility] 3 11:58:19 Anxiety 00441502 Active Not Available [facility] 3 11:58:19 Chronic urticaria 91580539 Active Not Available [facility] 3 11:58:19 Hyperlipide hermilo 56286835 Active Not Available [facility] 3 11:58:19 Pain of wrist region 54589798 Active Not Available [facility] 3 11:58:19 Fatigue 65974727 Active Not Available [facility] 3 11:58:19 Herpes simplex 26485380 Active Not Available [facility] 3 11:58:19 Cyst of pancreas 59680438 Active 2018 repeat MRI 03/02 Not Available [facility] 3 11:58:19 Osteopenia 787076503 Active 2020 DEXA 12/2020 Not Available [facility] 3 11:58:19 Essential hypertensio n 63877914 Active 2022 Not Available [facility] 3 11:58:19 Cramp in foot 997276909 Active 2022 Not Available [facility] 3 11:58:19 Reduced libido 1280851 Active 2022 Not Available [facility] 3 11:58:19 Pain of left breast 3215827691 Active 2022 Not Available [facility] 3 11:58:19 Skin lesion 10987861 Active 2022 Not Available [facility] 3 11:58:19 Hypothyroid ism 27475706 Active 2022 MOJGAN [facility] [address], [address], [place], [address] , [employer] 5 15:03:59 Cough 65379988 Active 2022 Not Available [facility] 3 11:58:19 Cobalamin deficiency 125209008 Active 2022 Not Available [facility] 3 11:58:19 Sleep apnea 01921170 Active 2022 Cecelia Tripathi MD [address], [address], [place], [address] , [employer] 3 09:06:04 Rib pain 393768379 Active 2023 Cecelia Tripathi MD [address], [address], [place], [address] , [employer] 4 09:15:38 Dizziness 140874030 Active 2023 Cecelia Tripathi MD [address], [address], [place], [address] , [employer] 4 09:07:17 Dementia 80187188 Active 2023 Cecelia Tripathi MD [address], [address], [place], [address] , [employer] 4 09:13:22 Inadequate intake of vitamin D and/or vitamin D derivative 549271767 Active 2023 HAN [facility] [address], [address], [place], [address] , [employer] [facility] 4 16:39:30 Eczema 54268512 Active 2024 BARTOLO Bran [address], [address], [place], [address] , [employer] [facility] [employer] [facility] 5 15:08:20 Body mass index 25-29 - overweight 769120374 Active 2024 BARTOLO Bran [address], [address], [place], [address] , [employer] 5 22:02:54 Problem Notes None recorded. Procedures Surgical History Date Name Laterality Status Provider Name and Address Organization Details Recorded Time 06/15/20 25 Medicare Wellness CPT Code, subsequent completed YAZ Summers MA Regen [facility] [employer] 06/15/2025 14:37:21 06/11/20 24 Medicare Wellness CPT Code, subsequent completed January PROMISE Meehan [facility] [employer] 06/10/2024 15:01:50 12/31/19 21 release of trigger thumb completed Not Available [facility] 12/12/2022 04:24:42 procedure on urinary bladder completed Not Available [facility] 12/12/2022 04:24:42 Carpal tunnel surgery completed Not Available [facility] 12/12/2022 04:24:42 Hysterectomy completed Not Available [facility] 12/12/2022 04:24:42 Imaging Results None recorded. Procedure Notes None recorded. Medical Equipment None Reported. Allergies Allergen ID Allergen Name Allergen Category Reaction Reaction Severity Criticality Documentation Date Start Date Code Code System Note Provider Name and Address Organization Details Recorded Time 6486 Substance with sulfonami de structure and antibacte rial mechanism of action (substanc e) medicatio n other Not available Not available 12/12/2022 36744 8003 SNOMED synco pe Not Available [facility] 3 04:35:45 6487 Product containin g penicilli n (product) medicatio n Not available Not available Not available 12/12/2022 03046 8001 SNOMED as a child Not Available [facility] 3 04:35:45 6488 codeine medicatio n Not available Not available Not available 12/12/2022 2670 RxNorm Other react ions and sever ities : 'Adve rse react ion to subst ance - Sever e'. Griselda MARILU Bennett [address], [place] [address], [place], [address], [employer] 4 10:01:54 6489 azithromy gretchen medicatio n Not available Not available Not available 12/12/2022 32298 RxNorm Other react ions and sever ities : 'Adve rse react ion to subst ance - Sever e'. Griselda MARILU Bennett [address], [facility] [address], [place], [address], [employer] 4 10:01:54 84946 penicilli n V Not available Not available Not available Not available 06/23/2024 7984 RxNorm Other react ions and sever ities : 'Adve rse react ion to subst ance - Sever e'. Griselda Bennett APRN [address] [facility], [place] [address], [place], [place], [address] [place] [address] 1, [employer] 4 10:01:54 Medications Name Sig Start Date Stop Date Status Note LastModified by Organization Details LastModified Time id now influenza a & b 2 test kit TEST DIRECTED TODAY 02/11 completed Not Available Not Available Not Available losartan 50 mg tablet 2 po qday MK 03/26/2306/23 completed Not Available Not Available Not Available cyclobenz aprine 10 mg tablet TAKE 1/2 TO 1 (ONE-FABIEN F TO ONE) TABLET BY MOUTH THREE TIMES DAILY NEEDED FOR SPASM 02/11 completed Not Available Not Available Not Available nystatin 100,000 unit/mL oral suspensio n SWISH AND SWALLOW 2 TEASPOON FULS (10 MLS) BY MOUTH FOUR TIMES PER DAY FOR 7 DAYS. active Not Available Not Available No t Available venlafaxi ne ER 75 mg capsule,e xtended release 24 hr Take 1 capsule every day by oral route for 30 days. active Not Available Not Available No t Available venlafaxi ne 75 mg tablet Take 1 tablet twice a day by oral route. 01/07 completed Not Available Not Available Not Available donepezil 5 mg tablet TAKE 1 TABLET BY MOUTH ONCE DAILY AT BEDTIME 2024 active Not Available Not Available Not Avai lable clindamyc in HCl 300 mg capsule TAKE 1 CAPSULE BY MOUTH EVERY 8 HOURS FOR 7 DAYS active Not Available Not Available No t Available lisinopri l 20 mg-hydroc hlorothia zide 12.5 mg tablet active Not Available Not Available No t Available fluconazo le 150 mg tablet TAKE ONE TABLET BY MOUTH A ONE TIME DOSE active Not Available Not Available No t Available B Complex-V itamin B12 tablet Take 1 tablet every day by oral route in the morning. 05/09 completed Not Available Not Available Not Available valacyclo vir 1 gram tablet Take 1 tablet every 12 hours by oral route for 7 days. 02/11 completed Not Available Not Available Not Available hydrocodo ne 5 mg-acetam inophen 325 mg tablet TAKE 1 TABLET BY MOUTH EVERY 6 HOURS NEEDED active Not Available Not Available No t Available donepezil 10 mg tablet Take 1 tablet every day by oral route at bedtime for 90 days. active Not Available Not Available No t Available prednison e 20 mg tablet 2 po qday with food x 5 days 06/15 completed Not Available Not Available Not Available fluoroura cil 5 % topical cream active Not Available Not Available Not Available prednison e 5 mg tablet active Not Available Not Available Not Available cromolyn 4 % eye drops INSTILL 1-2 DROP INTO AFFECTED EYE(S) BY OPHTHALM IC ROUTE 4 TIMES PER DAY prn active Not Available Not Available No t Available cyanocoba gayathri (vit B-12) 1,000 mcg tablet Take 1 tablet every day by oral route. 07/06 completed Not Available Not Available Not Available diphenoxy late-atro pine 2.5 mg-0.025 mg tablet TAKE 1 TO 2 TABLETS BY MOUTH EVERY 6 HOURS NEEDED 02/11 completed Not Available Not Available Not Available acyclovir 400 mg tablet prn 11/25 completed Not Available Not Available Not Available valacyclo vir 500 mg tablet Take 1 tablet every day by oral route. 05/02 completed Not Available Not Available Not Available ciproflox acin 500 mg tablet TAKE 1 TABLET BY MOUTH EVERY 12 HOURS 03/30 completed Not Available Not Available Not Available folic acid 400 mcg tablet Take 1 tablet every day by oral route in the morning 05/09 completed Not Available Not Available Not Available peg-elect rolyte solution 420 gram oral solution TAKE DIRECTED BY OFFICE 02/11 completed Not Available Not Available Not Available tramadol 50 mg tablet active Not Available Not Available Not Available triamcino lone acetonide 0.1 % topical cream APPLY TOPICALL Y TO THE AFFECTED AREA TWICE DAILY active Not Available Not Available No t Available levothyro xine 25 mcg tablet TAKE 1 TABLET BY MOUTH ONCE DAILY active Not Available Not Available No t Available meloxicam 7.5 mg tablet TAKE 1 TABLET BY MOUTH TWICE DAILY WITH FOOD NEEDED 02/11 completed Not Available Not Available Not Available magnesium oxide 400 mg (241.3 mg magnesium ) tablet TAKE 1 TABLET BY MOUTH TWICE DAILY active Not Available Not Available No t Available trazodone 100 mg tablet TAKE 1/2 TO 1 (ONE-FABIEN F TO ONE) TABLET BY MOUTH EVERY DAY AT BEDTIME NEEDED FOR INSOMNIA active Not Available Not Available No t Available Valium 5 mg tablet active Not Available Not Available No t Available Kenalog 10 mg/mL suspensio n for injection In office injectio n administ ered by the provider 07/06 completed [facility]: [id number] 4-20 Not Available Not Available Not Available meclizine 25 mg tablet TAKE 1 TABLET BY MOUTH THREE TIMES DAILY NEEDED FOR DIZZINES S 06/15 completed Not Available Not Available Not Available benzonata te 100 mg capsule Take 1 capsule 3 times a day by oral route for 10 days. active Not Available Not Available No t Available cephalexi n 500 mg capsule TAKE 1 CAPSULE BY MOUTH EVERY 12 HOURS FOR 7 DAYS 02/11 completed Not Available Not Available Not Available cyanocoba gayathri (vit B-12) 1,000 mcg/mL injection solution 1 ml IM x 1 11/16 completed Not Available Not Available Not Available ferrous sulfate 325 mg (65 mg iron) tablet TAKE 1 TABLET BY MOUTH ONCE DAILY 11/16 completed Not Available Not Available Not Available olopatadi ne 0.1 % eye drops INSTILL ONE DROP INTO THE AFFECTED EYE(S) TWICE DAILY NEEDED 01/08 completed Not Available Not Available Not Available lisinopri l 10 mg tablet 1 po daily 11/30 completed taking 1/2 tabs ( 5) Not Available Not Available Not Available Guaifenes in AC 10 mg-100 mg/5 mL oral liquid active Not Available Not Available Not Available promethaz ine 25 mg tablet TAKE 1/2 (ONE-FABIEN F) TABLET BY MOUTH EVERY 6 HOURS NEEDED FOR NAUSEA 02/11 completed Not Available Not Available Not Available hydrochlo rothiazid e 12.5 mg capsule Take 1 capsule every day by oral route. 01/07 completed Not Available Not Available Not Available gabapenti n 300 mg capsule 07/11 completed Not Available Not Available Not Available balsalazi de 750 mg capsule TAKE 3 CAPSULES BY MOUTH THREE TIMES DAILY active Not Available Not Available No t Available omeprazol e 20 mg capsule,d elayed release TAKE 1 CAPSULE BY MOUTH TWICE DAILY active Not Available Not Available No t Available diclofena c sodium 75 mg tablet,de layed release Take 1 tablet(s ) twice a day by oral route as needed. Take with food or milk 08/21 completed Not Available Not Available Not Available cyanocoba gayathri (vit B-12) 1,000 mcg sublingua l tablet Place 1 tablet every day by sublingu al route in the morning for 30 days. 05/09 completed Not Available Not Available Not Available mupirocin 2 % topical ointment 02/11 completed Not Available Not Available Not Available diclofena c sodium 50 mg tablet,de layed release TAKE 1 TABLET BY MOUTH TWICE DAILY NEEDED FOR PAIN 04/13 completed Not Available Not Available Not Available zolpidem 5 mg tablet TAKE 1 TABLET BY MOUTH ONCE DAILY 08/24 completed Not Available Not Available Not Available gabapenti n 100 mg capsule 08/21 completed Not Available Not Available Not Available metoprolo l succinate ER 25 mg tablet,ex tended release 24 hr Take 1 tablet every day by oral route. 12/20 completed Not Available Not Available Not Available budesonid e DR - ER 3 mg capsule,d elayed,ex tended release Take 3 capsules every day by oral route. 2024 active 2 caps daily Not Available Not Available Not Available levofloxa gretchen 500 mg tablet Take 1 tablet every 24 hours by oral route. active Not Available Not Available No t Available zolpidem 10 mg tablet TAKE 1 TABLET BY MOUTH ONCE DAILY AT BEDTIME NEEDED . DO NOT EXCEED 1 PER 24 HOURS 02/11 completed Not Available Not Available Not Available methylpre dnisolone 4 mg tablets in a dose pack 03/03 completed Not Available Not Available Not Available Vitamin D2 1,250 mcg (50,000 unit) capsule TAKE 1 CAPSULE BY MOUTH ONCE A WEEK active Not Available Not Available No t Available losartan 50 mg-hydroc hlorothia zide 12.5 mg tablet Take 1 tablet every day by oral route. 08/21 completed Not Available Not Available Not Available losartan 100 mg tablet 1 po qday 2024 active Not Available Not Available Not Avai lable fluticaso ne propionat e 50 mcg/actua tion nasal spray,gabbie pension [place] 1 spray every day by intranas al route. 06/11 completed Can start with 2 sprays in each nostril for 1 week, then taper to 1 spray in each nostril. Not Available Not Available Not Available doxycycli ne hyclate 100 mg tablet TAKE 1 TABLET BY MOUTH TWICE DAILY FOR 7 DAYS 08/14 completed Not Available Not Available Not Available dicyclomi ne 10 mg capsule Take 1 capsule 3 times a day by oral route as needed for 20 days. active Not Available Not Available No t Available loratadin e 10 mg tablet Take 1 tablet every day by oral route. 06/11 completed Not Available Not Available Not Available oxycodone 5 mg tablet 01/11 completed Not Available Not Available Not Available escitalop gonzalez 10 mg tablet Take 0.5 tablets every day by oral route. 07/06 completed Not Available Not Available Not Available Asprin Ec Low Dose 81 mg tablet,de layed release Take 1 tablet every day by oral route. 11/30 completed Not Available Not Available Not Available cyclobenz aprine 5 mg tablet 1 po tid prn 07/16 completed Not Available Not Available Not Available cholestyr amine (with sugar) 4 gram powder for susp in a packet DISSOLVE ONE PACKET (4 GRAM) IN 2 6 OUNCES OF WATER OR NONCARBO NATED BEVERAGE BY MOUTH ONE TIME PER DAY MAY INCREASE TO TWICE DAILY AFTER 1 active Not Available Not Available No t Available nitrofura ntoin monohydra te/macroc rystals 100 mg capsule Take 1 capsule every 12 hours by oral route for 7 days. active Not Available Not Available No t Available losartan 100 mg-hydroc hlorothia zide 12.5 mg tablet TAKE 1 TABLET BY MOUTH ONCE DAILY 10/26 completed Not Available Not Available Not Available diazepam 5 mg as needed 2x a day 03/21 completed Not Available Not Available Not Available lidocaine (PF) 10 mg/mL (1 %) injection solution In office injectio n administ ered by the provider 07/06 completed [facility]: [id number] 03-30 Not Available Not Available Not Available olopatadi ne 0.2 % eye drops INSTILL 1 DROP INTO AFFECTED EYE(S) BY OPHTHALM IC ROUTE ONCE DAILY 10/27 completed Not Available Not Available Not Available hydrochlo rothiazid e 12.5 mg tablet TAKE 1 TABLET BY MOUTH ONCE DAILY 06/15 completed Not Available Not Available Not Available cholecalc iferol (vitamin D3) 1,250 mcg (50,000 unit) capsule TAKE 1 CAPSULE BY MOUTH ONCE A WEEK 2022 active Not Available Not Available Not Avai lable GaviLyte- G 236 gram-22.7 4 gram-6.74 gram-5.86 gram oral solution TAKE DIRECTED BY OFFICE 11/25 completed Not Available Not Available Not Available levothyro xine 25 mcg capsule Take 1 capsule every day by oral route. 2024 active Not Available Not Available Not Avai lable Xifaxan 550 mg tablet TAKE ONE TABLET BY MOUTH THREE TIMES DAILY FOR 14 DAYS 08/14 completed Not Available Not Available Not Available Vitamin D3 50 mcg (2,000 unit) capsule Take 1 capsule every day by oral route. 06/15 completed Not Available Not Available Not Available D3 DOTS 2014 active Not Available Not Available Not Avai lable Viberzi 100 mg tablet Take 1 tablet twice a day by oral route. active Not Available Not Available No t Available ID NOW COVID-19 Test Kit TEST DIRECTED TODAY 10/17 completed Not Available Not Available Not Available Flublok Quad (PF) 180 mcg (45 mcg x 4)/0.5 mL IM syringe PHARMACI ST ADMINIST ERED IMMUNIZA TION ADMINIST ERED AT TIME OF DISPENSI NG active Not Available Not Available No t Available Vitals Date Recorded Body height Body mass index (BMI) Body weight Body temperature Heart rate Oxygen saturation Oxygen saturation in Arterial blood by Pulse oximetry Systolic And Diastolic Provider Name and Address Organization Details Last Updated DateTime 4 157.48 cm 26 kg/m2 70460.1 2 g 98.3 [degF] 61 /min 97 % 97 % 120/68 mm[Hg] Georgina Ku RN [facility] [employer] [facility] 4 09:02:36 Date Recorded Body height Body mass index (BMI) Body weight Body temperature Heart rate Oxygen saturation Oxygen saturation in Arterial blood by Pulse oximetry Systolic And Diastolic Provider Name and Address Organization Details Last Updated DateTime 4 157.48 cm 27.1 kg/m2 80349.6 7 g 99.5 [degF] 83 /min 96 % 96 % 140/84 mm[Hg] Taniya Trotter RN [facility] [employer] [facility] 4 14:12:45 Date Recorded Body height Body mass index (BMI) Body weight Body temperature Heart rate Oxygen saturation Oxygen saturation in Arterial blood by Pulse oximetry Systolic And Diastolic Provider Name and Address Organization Details Last Updated DateTime 5 157.48 cm 25.8 kg/m2 98765.5 2 g 98 [degF] 91 /min 97 % 97 % 168/102 mm[Hg] Srini YAZ Landry [facility] [employer] [facility] 5 14:47:53 Date Recorded Body height Body mass index (BMI) Body weight Body temperature Heart rate Oxygen saturation Oxygen saturation in Arterial blood by Pulse oximetry Systolic And Diastolic Provider Name and Address Organization Details Last Updated DateTime 4 157.48 cm 27.1 kg/m2 18391.6 7 g 97.7 [degF] 108 /min 96 % 96 % 162/98 mm[Hg] Taniya Trotter RN [facility] [employer] [facility] 4 16:18:37 Date Recorded Body height Body mass index (BMI) Body weight Body temperature Heart rate Oxygen saturation Oxygen saturation in Arterial blood by Pulse oximetry Systolic And Diastolic Provider Name and Address Organization Details Last Updated DateTime 4 157.48 cm 27.1 kg/m2 79119.6 7 g 99.3 [degF] 94 /min 98 % 98 % 168/100 mm[Hg] Taniya Trotter RN MA [employer] 12:08:24 Social History Question Answer Notes LastModified by Organizat ion Details LastModified Time Tobacco Smoking Status Never Smoker Aliza Weldon neeraj [employer] 08/14/2023 08:53:45 Do You Have An Advance Directive? No [id number] Information not available 12/12/2022 Are You Blind Or Do You Have Difficulty Seeing? No [email or web address] Information not available 08/14/2023 What Is Your Level Of Caffeine Consumption? Occasional [id number] Information not available 12/12/2022 How Much Tobacco Do You Chew? None [id number] Information not available 12/12/2022 In The 14 Days Before Symptom Onset, Have You Had Close Contact With A Laboratory-confir med COVID-19 While That Case Was Ill? Yes [email or web address] Information not available 08/14/2023 In The 14 Days Before Symptom Onset, Have You Had Close Contact With A Person Who Is Under Investigation For COVID-19 While That Person Was Ill? Yes [email or web address] Information not available 08/14/2023 Are You Deaf Or Do You Have Serious Difficulty Hearing? No Information not available 08/14/2023 What Type Of Diet Are You Following? REGULAR [id number] Information not available 12/12/2022 Which Illicit Or Recreational Drugs Have You Used? None [email or web address] Information not available 08/14/2023 Are There Any Guns Present In Your Home? No [email or web address] Information not available 08/14/2023 Do You Use Insect Repellent Routinely? Yes Information not available 06/15/2025 Where Do You Live? [facility] Information not available 06/15/2025 What Was The Date Of Your Most Recent Tobacco Screening? 06/15/2025 Information not available 06/15/2025 Do You Have Any Pets? Yes Information not available 06/15/2025 What Is Your Relationship Status? [id number] Information not available 12/12/2022 Do You Use Your Seat Belt Or Car Seat Routinely? Yes Information not available 06/15/2025 Do You Have Smoke And Carbon Monoxide Detectors In Your Home? Yes Information not available 06/15/2025 Are You Passively Exposed To Smoke? No Information no t available 06/15/2025 Are There Any Smokers In Your House? No Information not available 06/15/2025 Do You Participate In Social Media? No Information not available 06/15/2025 Do You Use Sunscreen Routinely? Yes [email or web address] Information not available 08/14/2023 Has Tobacco Cessation Counseling Been Provided? No Information not available 06/15/2025 Have You Recently Traveled Abroad? Yes [email or web address] Information not available 08/14/2023 Do You Have Difficulty Walking Or Climbing Stairs? No [email or web address] Information not available 08/14/2023 Do You Have Any Dietary Restrictions? No [email or web address] Information not available 08/14/2023 Sex: Female Functional Status Question Answer Note LastModified by CSIDat ion Details LastModified Time Do you use any illicit or recreational drugs? No Information not available 08/14/2023 Do you or have you ever used any other forms of tobacco or nicotine? No Information not available 06/15/2025 What is your level of alcohol consumption? Moderate [id number] Information not available 12/12/2022 Do you or have you ever used smokeless tobacco? Never used smokeless tobacco [id number] Information not available 12/12/2022 Are you currently employed? No retired Information not available 06/15/2025 Are you able to walk independently without assistance or assistive devices? YESWOREST [email or web address] Information not available 08/14/2023 Do you have difficulty doing errands alone? No [email or web address] Information not available 08/14/2023 Are you able to care for yourself independently? Yes [email or web address] Information not available 08/14/2023 Do you have difficulty dressing, bathing, grooming, or toileting? No Information not available 08/14/2023 Do you or have you ever used e-cigarettes or vape? Never used electronic cigarettes [email or web address] Information not available 08/14/2023 What is your exercise level? Occasional [id number] Information not available 12/12/2022 Mental Status Question Answer Note LastModified by Organizat ion Details LastModified Time Do you feel stressed (tense, restless, nervous, or anxious, or unable to sleep at night)? [id number] Information not available 06/15/2025 Do you have difficulty concentrating, remembering or making decisions? No [email or web address] Information no t available 08/14/2023 Family History Relationship Description Onset Age of this Age Resolved Age Notes LastModified by Organization Details LastModified Time Mother Hypertensive disorder [id number] Not available 12/12/2022 04:24:44 Mother Heart disease [id number] Not available 12/12/2022 04:24:44 Mother Family history of stroke [email or web address] Not available 2022 08:53:43 Sister Hypertensive disorder [id number] Not available 12/12/2022 04:24:44 Brother Family history of stroke [email or web address] Not available 2022 08:53:43 Sister Malignant neoplasm of breast Not available 2022 08:53:43 Sister Malignant neoplasm of breast [email or web address] Not available 2022 08:53:43 Medical History Condition Response CANCER: SPECIFY Y ARTHRITIS Y GI PROBLEMS Y SKIN PROBLEMS Y INSOMNIA Y HYPERTENSION Y HERPES Y HIGH CHOLESTEROL / HYPERLIPIDEMIA N Gynecological History Statement/Question Response Sexually Active? Y Menses Monthly N STIs/STDs N Current Control Method Menopause Breast Problems no Discharge no Obstetrics History GPAL:G 0 P 0 0 0 0 Immunizations Vaccine Type Date Status Note Provider Nam e and Address Organization Details Recorded Time influenza, unspecified formulation 3 completed Griselda Bennett APRN [address], [address], [place], [address], [place] [facility] [employer] 06/23/2024 10:02:07 Influenza, recombinant, quadrivalent, PF 0 shaye Bennett APRN [address], [address], [place], [address], [facility] [employer] [facility] [employer] 06/23/2024 10:01:42 zoster recombinant 0 shaye Bennett APRN [address], [address], [place], [address], [facility] 06/23/2024 10:01:42 zoster recombinant 1 completed Griselda Bennett APRN [address], [address], [place], [address], [facility] 06/23/2024 10:01:42 COVID-19, mRNA, LNP-S, PF, 30 mcg/0.3 mL dose, ryan-sucrose 2 completed Griselda Bennett APRN [address], [address], [place], [address], [facility] 06/23/2024 10:01:42 COVID-19, mRNA, LNP-S, PF, ryan-sucrose, 30 mcg/0.3 mL 3 completed Griselda Bennett APRN [address], [address], [place], [address], [facility] 06/23/2024 10:02:07 Influenza, split virus, quadrivalent, PF 3 completed Griselda Bennett APRN [address], [address], [place], [address], [facility] 06/23/2024 10:02:07 COVID-19, mRNA, LNP-S, PF, 30 mcg/0.3 mL dose 1 completed Griselda Bennett APRN [address], [address], [place], [address], [facility] 06/23/2024 10:01:42 COVID-19 vaccine, vector-nr, rS-Ad26, PF, 0.5 mL 1 completed Griselda Bennett APRN [address], [address], [place], [address], [facility] 06/23/2024 10:01:42 Influenza, split virus, quadrivalent, preservative 0 completed Not Available [facility] 12/12/2022 04:35:40 Influenza, split virus, quadrivalent, PF 2 completed Griselda Bennett, [employer] TECHNICIAN [address], [address], [place], [address], [facility] [employer] 06/23/2024 10:01:42 Pneumococcal conjugate PCV 13 1 completed Griselda Bennett, PHOTO OPT[employer] TECHNICIAN [address], [address], [place], [address], [employer] 06/23/2024 10:01:42 Tdap 9 completed Not Available [facility] 12/12/2022 04:35:40 Influenza, split virus, quadrivalent, PF 1 completed Not Available [facility] 12/12/2022 04:35:40 Past Encounters Encounter ID Performer Location Encounter Start Date Encounter Closed Date Diagnosis/Indication Diagnosis SNOMED-CT Code Diagnosis ICD10 Code Diagnosis IMO Codes Diagnosis Note [id number] MARYAM Bonilla [facility] [address] [place] [address] 01/11/2021 00:00:00 01/11/2021 10:51:38 [id number] HAN Nelson [facility] Primary Care [address] [place] [address] 01/26/2021 00:00:00 01/26/2021 21:28:24 [id number] Rosa Maria Merritt MD [facility] [address] [place] [address] 02/07/2021 00:00:00 02/07/2021 12:48:33 [id number] Cecelia Tripathi MD [facility] [place] [facility] [address] [address] [place] [address] 03/30/2021 00:00:00 04/11/2021 14:52:22 [id number] Rosa Maria Merritt MD [facility] [address] [place] [address] 05/09/2021 00:00:00 05/09/2021 09:46:57 [id number] Cecelia Tripathi MD [facility] Primary Care [place] [address] [place] [address] 05/11/2021 00:00:00 05/11/2021 09:48:43 [id number] Cecelia Tripathi MD [facility] Primary Care [place] [address] [place] [address] 08/15/2021 00:00:00 08/15/2021 10:30:34 [id number] MARYAM Dean [facility] Primary [facility] [place] [address] [place] [address] 09/27/2021 00:00:00 09/27/2021 12:51:12 [id number] Rosa Maria Merritt MD [facility] [place] [address] [place] [address] 11/07/2021 00:00:00 11/07/2021 10:07:48 [id number] Cecelia Tripathi MD [facility] Primary Care [place] [address] [place] [address] 11/13/2021 00:00:00 11/13/2021 09:42:28 [id number] Cecelia Tripathi MD [facility] Primary Care [place] [address] [place] [address] 12/11/2021 00:00:00 12/11/2021 09:33:20 [id number] Cecelia Tripathi MD [facility] Primary Care [place] [address] [place] [address] 01/16/2022 00:00:00 01/16/2022 14:20:50 [id number] Cecelia Tripathi MD [facility] Primary Care [place] [address] [place] [address] 01/22/2022 00:00:00 01/25/2022 12:03:24 [id number] Cecelia Tripathi MD [facility] Primary Care [place] [address] [place] [address] 02/05/2022 00:00:00 02/05/2022 08:25:58 [id number] Rosa Maria Merritt MD [facility] [place] [address] [place] [address] 02/06/2022 00:00:00 02/06/2022 16:31:25 [id number] Cecelia Tripathi MD [facility] Primary Care [place] [address] [place] [address] 03/15/2022 00:00:00 04/11/2022 07:58:46 [id number] Cecelia Tripathi MD S[facility] Primary Care [place] [address] [place] [address] 05/03/2022 00:00:00 05/07/2022 08:06:41 [id number] Cecelia Tripathi MD [facility] Primary Care [place] [address] [place] [address] 06/11/2022 00:00:00 06/11/2022 09:55:24 [id number] MARYAM Dean [facility] Primary [facility] [place] [address] [place] [address] 07/24/2022 00:00:00 07/24/2022 13:31:37 [id number] Cecelia Tripathi MD S[facility] Primary Care [place] [address] [place] [address] 09/10/2022 00:00:00 09/10/2022 09:16:50 [id number] MARYAM Dean [facility] Primary [facility] [place] [address] [place] [address] 10/17/2022 00:00:00 10/17/2022 09:55:24 [id number] Cecelia Tripathi MD [facility] Primary Care [place] [address] [place] [address] 12/03/2022 00:00:00 12/09/2022 20:26:28 [id number] Cecelia Tripathi MD [facility] Primary Care [address] [place] [address] 01/07/2023 09:17:49 01/07/2023 09:52:07 Essential hypertension 73715540 I10 check home blood pressures a few days per weekcontin ue losartan 50 mg dailyrevie wed labs-no significan t findingsf/ u in 4 weeks or sooner if needed [id number] Cecelia Tripathi MD [facility] Primary Care [address] [place] [address] 02/06/2023 15:07:34 02/06/2023 15:52:27 Essential hypertension 86484511 I10 ok to continue current medscheck labsf/u in 4 weeks Cramp in foot 831974246 R25.2 Reduced libido 5929839 R 68.82 Fatigue 55006986 R53.83 [id number] Cecelia Tripathi MD [facility] Primary Care [address] [place] [address] 03/21/2023 12:31:38 03/21/2023 12:59:33 Essential hypertension 63857549 I10 ok to continue current medscheck bp once per weekf/u in 2 months Pain of left breast 1010 776376 N64.4 normal left diagnostic mammogram and US left breast in November but persistent left breast pain Reduced libido 1858930 R 68.82 [id number] Cecelia Tripathi MD [facility] Primary Care [address] [place] [address] 03/26/2023 14:09:22 03/27/2023 08:46:44 [id number] Cecelia Tripathi MD [facility] Primary Care [address] [place] [address] 05/14/2023 08:54:54 05/14/2023 09:17:57 Pain of left breast 4608388062 N64.4 Normal diagnostic and US left breast 12/06 and screen mammogram in March3persis tent painbreast surgery referral given Renewal of prescription 059135281 Z76.0 Essential hypertension 04532090 I10 improvedco ntinue current medscheck labs Hypothyroidism 39898316 E03.9 [id number] Cecelia Tripathi MD [facility] Primary Care [address] [place] [address] 06/20/2023 16:39:52 07/09/2023 04:06:22 [id number] Cecelia Tripathi MD [facility] Primary Care [address] [place] [address] 08/14/2023 08:51:43 08/14/2023 09:19:02 Sleep apnea 26116628 G47.30 snoring and excessive daytime somnolence will get home sleep study Cough 23278852 R05.9 No improvemen t with doxycyclin eexam normalCXR was ordered [id number] Cecelia Tripathi MD [facility] Primary Care [address] [place] [address] 11/13/2023 08:56:42 11/13/2023 09:29:03 Essential hypertension 67752066 I10 improvedco ntinue current medscheck labs Hypothyroidism 14343082 E03.9 Cobalamin deficiency 190 144554 E53.8 Vitamin D deficiency 347 16215 E55.9 Rib pain 928949528 R07.8 1 check xrayreview ed s/s that warrant urgent/fareed rgent eval in meantime [id number] Cecelia Tripathi MD [facility] Primary Care [address] [address] 02/12/2024 08:56:55 02/12/2024 09:29:29 Dizziness 541096452 R42 will re-refer to Dr. Healy had cardiac work up Cobalamin deficiency 190 888863 E53.8 Essential hypertension 52681435 I10 improvedco ntinue current medscheck labs 02/12/24:dec rease losartan 1/2 tab dailycheck home bp 2x per weekf/u in 3 months or sooner if needed Hypothyroidism 23487859 E03.9 Vitamin D deficiency 347 61832 E55.9 Dementia 00885602 F03.90 on donepezil 5 mg dailywas seeing neurology Dr. Saxena [id number] BARTOLO Tilley [facility] Primary Care [address] [place] [address] 06/11/2024 14:02:57 06/11/2024 14:43:23 Adult health examination 138074089 Z00.00 Screening for disorder 709984633 Z13.9 Screening for malignant neoplasm of colon 177361243 Z12.11 Thyroid di sorder screening 922654665 Z13.29 Diabetes m ellitus screening 215627303 Z13.1 Anemia screening 5091227 07 Z13.0 Hyperlipid emia screening 533579845 Z13.220 Vitamin D deficiency 347 82535 E55.9 Referral needed 19956094 9 Z76.89 [id number] BARTOLO Tilley [facility] Primary Care [address] [place] [address] 06/19/2024 16:12:45 06/19/2024 16:43:15 Screening for malignant neoplasm of breast 164916450 Z12.39 Vitamin D deficiency 347 67082 E55.9 Cough 78738263 R05.9 [id number] BARTOLO Tilley [facility] Primary Care [address] [place] [address] 07/09/2024 11:49:37 07/09/2024 14:02:00 Dementia 14697634 F03.90 family noting recent occurrence s of increased confusion at night2 nights she was up all night, called the quality engineer medical device, hallucinat ionspt drinks vodka at nightwill give referral to neurologis gabby mclean donepezil to 10mg Essential hypertension 23809383 I10 bp 168/100cur rently takes 50mg losartan and 12.5mg hctzincrea sing losartan n to 1 full tab daily [id number] BARTOLO Bran [facility] Primary Care [address] [place] [address] 06/15/2025 14:25:50 06/15/2025 15:14:36 Adult health examination 080779167 Z00.00 Discussed medication compliance and routine follow up.Discuss ed healthy diet and routine exercise.Richard appiahwed vaccine records and made recommenda tions as needed.Enc ouraged annual eye and dental exams, as well as twice yearly dental cleanings. Will check screening labs as listed below. Screening for disorder 756647323 Z13.9 Screening mammography 24 260465 Z12.31 1982373 Essential hypertension 47454744 I10 168/102.Maryam witt has been out of medication for several months.Dis cussed medication compliance and DASH diet. Hypothyroidism 42117386 E03.9 [id number] Will refill meds and check labs as listed below. Dementia 08067002 F03.90 Patient has not been taking Donepezil due to dizziness. Son and patient agree to restart medication with a referral to neurology. Eczema 98973967 L30.9 74823540 Irritable bowel syndrome 82383725 K58.9 Screening for osteoporosis 312039525 Z13.362 0276902 Diabetes m ellitus screening 883515294 Z13.1 74106 Gynecologi c examination 26363202 Z01.042 7943783 Body mass index 25-29 - overweight 667919286 E66.3 159712 Health Concerns Section Related Observation LastModified by Organization Detai ls LastModified Time None Recorded Concern Status LastModified by Organization Details LastModified Time None Recorded Advance Directives Directive N: Payers Insurance Date Sequence Insurance Name Policy Number Policy Ponce Covered Member ID Ponce Member ID Guarantor Name 08/19/2024 4 [place] [facility] DEPARTMENT OF PUBLIC AID Karuna Carroll [id number] Karuna Carroll 10/22/2024 2 [facility] [facility] (MEDICAID HMO) [id number] 0003 Karuna Carroll [id number] Karuna Carroll 06/11/2024 2 [facility] (MEDICAID HMO) [id number] 0003 Karuna Carroll [id number] Karuna Carroll 08/19/2024 3 [place] [facility] EM[facility] DEPARTMENT OF PUBLIC AID Karuna Carroll [id number] Karuna Carroll 08/14/2023 2 [facility] (MEDICAID HMO) [id number] 0003 Karuna Dayna Carroll [id number] Karuna Dayna Carroll 06/15/[address] [facility] (SECONDARY PLAN WHEN MEDICARE OR MEDICARE REPLACEMENT PRIMARY) Karuna Carly [id number] Karuna Dayna Carroll 06/14/2025 1 [place] Karuna Carroll [id number] Karuna Dayna Carroll 06/15/2025 2 [facility] (MEDICAID HMO) Karuna Dayna Carroll [id number] Karuna Carroll Notes Date Note Type Note Provider Name and Address Organization Details Recorded Time 02/12/2024 text/html ROS as noted in the HPI still having some episodes of dizziness, overall blood pressures are looking good. Cecelia Tripathi MD [address], [place], [address], [employer] 03/01/2024 14:56:49 06/11/2024 text/html pt is here for physical HAN Tilley-Ruby [address], [place], [address], [employer] 06/11/2024 14:45:50 06/19/2024 text/html pt is here for f/u HAN Tilley-C [address], [place], [address], [employer] 06/19/2024 16:42:57 07/09/2024 text/html pt is here for f/u HAN Tilley-C [address], [place], [address], [employer] 07/09/2024 14:57:47 06/15/2025 text/html Patient is a 64 year old female that presents to the office for Medicare Wellness. Patient is accompanied by son and [id number]. Patient reports she is doing well and has no concerns at this time. labs- orderedWWE- hysterectomyMammog gonzalez- orderedDEXA- orderedCologuard- 2023Flu- recommendedCovid- recommendedTdap- UTD (2019)Blaine- UTDPneumo- UTDRSV- aware BARTOLO Bran [address] [facility], [facility] [address], [place], [address], [place] [facility] [place] [employer] [facility] 06/15/2025 22:03:24 OBGyn Episode No OBEpisode recorded.
--- OUTSIDE RECORDS SUMMARY | 2025-07-28 16:35 | XMS_ITS | Clinical Summary ---
Author Organization [facility] [address] [facility] Address [address] [place] [phone] Phone Care Team Providers Care Spectroscopist Name Role Phone Cecelia Tripathi MD Primary Care Provider + Lenny Quiroz MD Unavailable [phone] Allergies Active Allergy Reactions Criticality Noted Date Comments Azithromycin Hives Medium 07/23/2019 Codeine Dizziness Low Penicillins Sulfa (Sulfonamide Antibiotics) Unknown Medications losartan (COZAAR) 25 mg tablet take 1 tablet by oral route every day 0 0 10/27/19 16 Active Additional Information Patient not taking.Reported on 07/23/2019 cholestyramine (QUESTRAN) 4 gram packet cholestyramine (with sugar) 4 gram powder for susp in a packet Active losartan-hydroC HLOROthiazide (HYZAAR) 100-12.5 mg per tablet 07/20/20 19 Active losartan-hydroC HLOROthiazide (HYZAAR) 100-12.5 mg per tablet losartan 100 mg-hydrochlorothia zide 12.5 mg tablet Active diazePAM (VALIUM) 5 mg tablet 05/08/20 19 Active acyclovir (ZOVIRAX) 400 mg tablet TAKE 2 TABLETS BY MOUTH THREE TIMES DAILY FOR 2 DAYS FOR EACH OUTBREAK OF COLD SORES STARTING SOON SYMPTOMS APPEAR. 3 06/19/20 19 Active balsalazide (COLAZAL) 750 mg capsule Take by mouth 3 (three) times a day 5 07/10/20 19 Active nitrofurantoin monohydrate (MACROBID) 100 mg capsule TAKE 1 CAPSULE BY MOUTH EVERY 12 HOURS FOR 7 DAYS 0 05/18/20 19 Active zolpidem (AMBIEN) 10 mg tablet 07/16/20 19 Active zolpidem (AMBIEN) 10 mg tablet zolpidem 10 mg tablet Active zolpidem (AMBIEN) 5 mg tablet 07/19/20 19 Active ZOLMitriptan (ZOMIG) 5 mg tabletIndicatio ns:Migraine Take 5 mg by mouth once as needed for migraine May repeat in 2 hours if unresolved. Do not exceed 10 mg in 24 hours. Active biotin 2,500 mcg capsule Take by mouth Acti ve cyanocobalamin (Vitamin B-12) 1,000 mcg tablet daily 11/25/19 Active ferrous sulfate 325 mg (65 mg of elemental iron) tablet ferrous sulfate 325 mg (65 mg iron) tablet Active hydroCHLOROthia zide (MICROZIDE) 12.5 mg capsule Take 12.5 mg by mouth daily Active losartan (COZAAR) 100 mg tablet losartan 100 mg tablet Active Active Problems Problem Noted Date Diagnosed Date Skin tag 07/23/2019 Abnormal thyroid stimulating hormone (TSH) level 07/23/2019 Anxiety 07/23/2019 Chest pain 07/23/2019 Chronic diarrhea of unknown origin 07/23/2019 Chronic urticaria 07/23/2019 Herpes simplex 07/23/2019 Hyperlipidemia 07/23/2019 Hypertensive disorder 07/23/2019 Insomnia 07/23/2019 Irritable bowel syndrome 07/23/2019 Malignant neoplasm of skin 07/23/2019 Pain in wrist 07/23/2019 Symptoms involving urinary system 07/23/2019 Vitamin D deficiency 07/23/2019 Cyst of pancreas 04/08/2019 Arthralgia 05/17/2017 Assessment & Plan (06/07/2017 11:56 AM CDT): This patient, currently has normal liver,kidney, and [...] abnl colonoscopy. Pt seen with Dr. Daniel. Assessment & Plan (05/17/2017 1:25 PM CDT): Joint tenderness and synovitis present. Could have an inflammatory arthritis such as Ra. Will consider a sponyloarthritis with her h/o AM back pain as well. Labs, serologies and u/s of rt hand ordered today. F/u 2 weeks for c2. Pt seen with Dr. Daniel. Fatigue 05/17/2017 Assessment & Plan (05/17/2017 1:27 PM CDT): Will check hepatitis panel with labs. Chronic back pain 05/17/2017 Assessment & Plan (06/07/2017 11:58 AM CDT): Osteoarthritis seen on xrays. Recommend doing therapy. Possible she could have inflammatory back disease as she has inflammatory back sx's and an abnl colonoscopy. Will try to get results from colonoscopy. Just started on budesonide 2 days ago. Will hold off on starting new medicine at this time. Assessment & Plan (05/17/2017 1:26 PM CDT): Will check xrays and refer to physical therapy. Can con't with ibuprofen and Pennsaid. Medical History Medical History Date Comments Hx Other Medical Back Pain; Comm ents: JNS 10/27/2015 - Hypertension Hypertension Family History Medical History Relation Name Comments Diabetes type II Other 1 Family hist ory of Diabetes mellitus type 2; Hypertension Other 2 Family history of Hypertension; Stroke Other 3 Family history of Stroke; Heart disease Other 4 Family history of Heart problems; Lung disease Other 5 Family history of Lung problems; Relation Name Status Comments Other 1 Other 2 Other 3 Other 4 Other 5 Social History Tobacco Use Types Packs/Day Years Used Date Smoking Tobacco: Never Alcohol Use Standard Drinks/Week Comments Yes 0 (1 standard drink = 0.6 oz pur e alcohol) Comments Unknown Sex and Gender Information Value Date Recorded Sex Assigned at Not on file Legal Sex Female 3:56 AM [employer] Gender Identity Not on file Sexual Orientation Not on file Obstetrics History Last Filed Vital Signs Vital Sign Reading Time Taken Comments Blood Pressure 140/90 06/07/2017 11:13 AM CDT Pulse 96 06/07/2017 11:13 AM CDT Temperature - - Respiratory Rate - - Oxygen Saturation - - Inhaled Oxygen Concentration - - Weight 59.9 kg (132 lb) 06/07/2017 11:13 AM CDT Height 158.8 cm (5' 2.5) 05/17/2017 12:47 PM CD T Body Mass Index 23.76 05/17/2017 12:47 PM CDT Plan of Treatment Not on file Insurance [facility] MEDICARE Care Teams Spectroscopist Relationship Specialty Start Date End Date Cecelia Tripathi MD PCP - General 03/06/19 Lenny Quiroz MD [address] [facility] [address] [place] [address] Family Medicine 03/06/19
== END 2025-07-28 14:14 | disposition home or self-care (01) ==
LOC: CHSIMG 14:18
PROVIDERS: PCP Family Medicine; Visit Provider Nurse Practitioner Family
DX: Z12.31 Encounter for screening mammogram for malignant neoplasm of breast (principal)
CPT/HCPCS: 77063; 77067